=== PATIENT | female | born 1985 | race Caucasian/White ===

== ENCOUNTER 2020-03-22 10:08 | Outpatient (REF) | payer BC, SELFPAY ==
[2020-03-28 05:48] LABS: HPV 16 RNA NOT DETECTED (NOT DETECTED); HPV mRNA E6/E7 rflx Detected (Not Detected)
== END 2020-03-22 10:09 | disposition home or self-care (01) ==
LOC: HO.LAB 10:08
PROVIDERS: PCP Internal Medicine; Visit Provider Advanced Practice Midwife
DX: Z01.419 Encounter for gynecological examination (general) (routine) without abnormal findings (principal); R87.612 Low grade squamous intraepithelial lesion on cytologic smear of cervix (LGSIL); E11.9 Type 2 diabetes mellitus without complications; E28.2 Polycystic ovarian syndrome; E78.5 Hyperlipidemia, unspecified; Z90.710 Acquired absence of both cervix and uterus
CPT/HCPCS: 87624; 87625; 88141; 88142

== ENCOUNTER 2020-08-30 09:06 | Outpatient (REF) | payer BC, SELFPAY ==
[2020-08-30 10:39] LABS: Estimated Average Glucose 235 mg/dL; Hemoglobin A1c % 9.8 %
[2020-08-30 10:43] LABS: Alanine Aminotransferase 24 U/L (0-31); Albumin Level 4.2 g/dL (3.5-5.0); Alkaline Phosphatase 70 U/L (39-117); Anion Gap 14 (12-20); Aspartate Amino Transferase 17 U/L (5-31); Bilirubin Total 0.8 mg/dL (0.0-1.0); Blood Urea Nitrogen 19 mg/dL (9-16); Calcium 9.3 mg/dL (8.4-10.2); Carbon Dioxide 25 mmol/L (22-29); Chloride 99 mmol/L (96-108); Cholesterol 287 mg/dL; Estimated Glomerular Filt Rate > 60; Glucose Fasting 235 mg/dL (60-99); HDL Cholesterol 51 mg/dL; LDL Cholesterol Calculated 208 mg/dl; Potassium 4.7 mmol/L (3.3-5.1); Sodium 133 mmol/L (135-145); Total Protein 7.2 g/dL (6.5-8.0); Triglycerides 143 mg/dL
[2020-08-30 10:59] LABS: Creatinine Urine 177.77 mg/dL; Microalbum/Creatinine Ratio Ur 7.3 ug/mg cr
== END 2020-08-30 09:07 | disposition home or self-care (01) ==
LOC: HO.LAB 09:06
PROVIDERS: PCP Internal Medicine; Visit Provider Internal Medicine
DX: E11.9 Type 2 diabetes mellitus without complications (principal); E78.5 Hyperlipidemia, unspecified
CPT/HCPCS: 36415; 80053; 80061; 82043; 83036

== ENCOUNTER 2020-09-18 14:25 | Outpatient (REF) | payer BC, SELFPAY ==
[2020-09-19 06:42] LABS: CT PCR NOT DETECTED (Not Detect.); NG PCR NOT DETECTED (Not Detect.)
[2020-09-19 08:39] LABS: BV Int Neg Control Negative (Negative); BV Int Pos Control Positive (Positive)
== END 2020-09-18 14:26 | disposition home or self-care (01) ==
LOC: HO.LAB 14:25
PROVIDERS: PCP Internal Medicine; Visit Provider Obstetrics & Gynecology
DX: N76.0 Acute vaginitis (principal); Z20.2 Contact with and (suspected) exposure to infections with a predominantly sexual mode of transmission
CPT/HCPCS: 81003; 81025; 87480; 87491; 87510; 87591; 87660

== ENCOUNTER 2021-01-02 07:07 | Outpatient (REF) | payer BC, SELFPAY ==
[2021-01-02 08:59] LABS: Alanine Aminotransferase 20 U/L (0-31); Albumin Level 4.1 g/dL (3.5-5.0); Alkaline Phosphatase 51 U/L (39-117); Anion Gap 12 (12-20); Aspartate Amino Transferase 15 U/L (5-31); Bilirubin Total 0.6 mg/dL (0.0-1.0); Blood Urea Nitrogen 14 mg/dL (9-16); Calcium 9.1 mg/dL (8.4-10.2); Carbon Dioxide 23 mmol/L (22-29); Chloride 106 mmol/L (96-108); Cholesterol 208 mg/dL; Estimated Glomerular Filt Rate > 60; Glucose Fasting 145 mg/dL (60-99); HDL Cholesterol 45 mg/dL; LDL Cholesterol Calculated 147 mg/dl; Potassium 4.7 mmol/L (3.3-5.1); Sodium 136 mmol/L (135-145); Total Protein 6.8 g/dL (6.5-8.0); Triglycerides 81 mg/dL
== END 2021-01-02 07:08 | disposition home or self-care (01) ==
LOC: HO.LAB 07:07
PROVIDERS: PCP Internal Medicine; Visit Provider Internal Medicine
DX: E11.9 Type 2 diabetes mellitus without complications (principal); E78.5 Hyperlipidemia, unspecified
CPT/HCPCS: 36415; 80053; 80061

== ENCOUNTER 2021-01-09 08:46 | Emergency (ER) | payer BC, SELFPAY ==
[2021-01-09 09:50] VITALS: BP 148/72; PULSE 82; RESP 18; TEMP 36.8; O2SAT 100; BMI 32.0
[2021-01-09 10:25] LABS: COVID-19 Test Negative (Negative); IDNOW Serial# 9DD0AD1C
[2021-01-09 10:32] LABS: Strep A Nucleic Acid Negative (Negative)
--- NOTE | 2021-01-09 10:43 | ED.URI ---
HPI - URI/Sore Throat General Chief Complaint: Upper Respiratory Symptoms Stated Complaint: COUGH SORE THROAT HEADACHE Time Seen by Provider: 01/09/21 08:47 Source: patient Mode of arrival: ambulatory Limitations: no limitations History of Present Illness MD elicited complaint: sore throat and rhinorrhea Onset (ago): day(s) (1.5) Consistency: improved Severity: mild Description of mucous: clear Able to tolerate fluids by mouth: Yes Exacerbating factors: swallowing Associated symptoms: denies other symptoms Treatments prior to arrival: none Related Data Home Medications Medication Instructions Recorded Confirmed metformin 750 mg tablet,extended 750 mg PO BID 03/22/20 01/07/21 release 24 hr blood sugar diagnostic #10 ea 08/29/20 01/07/21 Previous Rx's Medication Instructions Recorded atorvastatin 20 mg tablet 20 mg PO BEDTIME 90 Days #90 tab 01/07/21 Allergies Allergy/AdvReac Type Severity Reaction Status Date / Time sulfamethoxazole [Bactrim] Allergy Intermediate hives Verified 01/09/21 09:49 trimethoprim [Bactrim] Allergy Intermediate hives Verified 01/09/21 09:49 metformin AdvReac Intermediate diarrhea Verified 01/09/21 09:49 Review of Systems Review of Systems: Constitutional : no Fever, no Chills, no fatigue, no Malaise ENT/Mouth : positive sore throat, positive runny nose Eyes: No Discharge Cardiovascular : No Chest Pain, No SOB Respiratory : No Cough, No Sputum Gastrointestinal : No Nausea, No Vomiting, No Diarrhea Genitourinary : No Dysuria, No Urinary Frequency Musculoskeletal : no Myalgia Skin : No rash Neuro : No Headache PMFSH Past Medical History Attestation statement: The following information was validated with the patient. Medical History Class 1 obesity with body mass index (BMI) of 32.0 to 32.9 in adult Diabetes mellitus Diabetes mellitus type 2 in nonobese History of PCOS Hyperlipemia Pure hypercholesterolemia Surgical History History of hysterectomy, supracervical Hx of section Family History Family History Father Diabetes mellitus Substance use disorder Mother Hypertension Social History Social History Housing: House Alcohol intake: never Patient Tobacco Use Status: Never used Tobacco e-Cigarette/Vaping Use: Never Used Second Hand Smoke Exposure: No Advance Directives: Yes Advance Directives Information Provided: No Advance Directives on File: No Patient : No service: No Current occupational status: employed Current occupational exposures/hazards: No Sexual orientation: Straight/Heterosexual Physical Exam Vital Signs: Vital Signs: Last Vital Signs Temp 98.3 F 01/09/21 09:50 Pulse 82 01/09/21 09:50 Resp 18 01/09/21 09:50 BP 148/72 H 01/09/21 09:50 Pulse Ox 100 01/09/21 09:50 Body Mass Index 32.0 Appearance: Alert. Oriented X3. No acute distress. Eyes: Pupils equal, round and reactive to light. ENT: Pharynx no erythema or exudates Neck: Normal inspection. Neck supple. CVS: Normal heart rate and rhythm. Pulses normal. Respiratory: No respiratory distress. Breath sounds normal. Abdomen: Soft and nontender. Skin: Skin warm and dry. Normal skin color. Normal skin turgor. Extremities: No lower extremity edema. Neuro: Oriented X 3. No motor deficit. No sensory deficit. MDM - URI/Sore Throat MDM Narrative Medical decision making narrative: 35 yo female with DM here with runny nose for 1.5 days no fevers, some scratchy throat otherwise not toxic, already feels better, no sinus ttp - COVID and strep swab, precautions to return Lab Data Labs: Lab Results 01/09/21 01/09/21 Range/Units 09:52 09:52 COVID-19 ([facility]) Negative (Negative) COVID-19 Clin Com See Note S. pyogenes GrpA HAMIDA Negative (Negative) Discharge Plan Discharge Clinical Impression: Upper respiratory infection Qualifiers: URI type: unspecified viral URI Qualified Code(s): J06.9 - Acute upper respiratory infection, unspecified Patient Disposition: Home, Self-Care Instructions: Upper Respiratory Infection (ED) Additional Instructions: return to ED for any worsening symptoms or concerns negative for COVID and negative for strep if symptoms persist repeat test in 2 days Prescriptions: No Action atorvastatin 20 mg tablet 20 mg PO BEDTIME 90 Days Qty: 90 RF: 1 (DME) OneTouch Verio test strips Strip See Rx Instructions ea Not Applicable TID Qty: 10 RF: 0 metformin 750 mg tablet extended release 24 hr 750 mg PO BID RF: 0 Stand Alone Forms: Work/School Release
== END 2021-01-09 11:03 | disposition home or self-care (01) ==
PROVIDERS: Emergency Provider Emergency Medicine; PCP Internal Medicine
DX: J06.9 Acute upper respiratory infection, unspecified (principal); R05 Cough; R51.9 Headache, unspecified; Z20.822 Contact with and (suspected) exposure to COVID-19; Z79.899 Other long term (current) drug therapy
CPT/HCPCS: 36415; 87635; 87651; 99283

== ENCOUNTER 2021-01-12 12:28 | Emergency (ER) | payer BC, SELFPAY ==
[2021-01-12 12:37] VITALS: BP 107/84; PULSE 80; RESP 18; TEMP 36.8; O2SAT 98; BMI 32.0
[2021-01-12 13:22] LABS: COVID-19 Test Negative (Negative)
--- NOTE | 2021-01-12 14:39 | ED.URI ---
HPI - URI/Sore Throat General Chief Complaint: Upper Respiratory Symptoms Stated Complaint: FLU LIKE Time Seen by Provider: 01/12/21 14:39 Source: patient Mode of arrival: ambulatory Limitations: no limitations History of Present Illness HPI Narrative: 35-year-old female who had upper respiratory symptoms starting on of sore throat and rhinorrhea. Sore throat resolved, she was seen in the emergency room 4 days ago and had a negative strep and a negative COVID. Since then, patient states her ears are ?crackling?, she has a runny nose, a mild frontal headache. No cough, no fever, no body aches. Related Data Home Medications Medication Instructions Recorded Confirmed metformin 750 mg tablet,extended 750 mg PO BID 03/22/20 01/07/21 release 24 hr blood sugar diagnostic #10 ea 08/29/20 01/07/21 Previous Rx's Medication Instructions Recorded atorvastatin 20 mg tablet 20 mg PO BEDTIME 90 Days #90 tab 01/07/21 Allergies Allergy/AdvReac Type Severity Reaction Status Date / Time sulfamethoxazole [Bactrim] Allergy Intermediate hives Verified 01/12/21 12:36 trimethoprim [Bactrim] Allergy Intermediate hives Verified 01/12/21 12:36 metformin AdvReac Intermediate diarrhea Verified 01/12/21 12:36 Review of Systems Constitutional: Constitutional: Denies body ache(s), Denies chills, Reports fatigue, Denies fever(s) and Reports headache(s) Eyes: Eyes: Denies blurry vision, Denies change in vision and Denies diplopia ENT: Denies dizziness, Denies otalgia, Reports headache(s), Reports nasal congestion, Reports nasal discharge, Reports post nasal drip, Reports sinus pain and Denies sore throat Cardiovascular: Cardiovascular: Denies chest pain and Denies dyspnea Respiratory: Respiratory: Denies chest congestion, Denies cough and Denies dyspnea Gastrointestinal: Gastrointestinal: Denies abdominal pain, Denies constipation, Denies diarrhea, Denies nausea and Denies vomiting Genitourinary: Genitourinary: Reports no additional female genitourinary complaints Musculoskeletal: Musculoskeletal: Denies myalgias Integumentary/Breasts: Skin/Breast: Denies erythema Neurologic: Denies dizziness and Reports headache(s) Endocrine: Endocrine: Reports fatigue PMFSH Past Medical History Medical History Class 1 obesity with body mass index (BMI) of 32.0 to 32.9 in adult Diabetes mellitus Diabetes mellitus type 2 in nonobese History of PCOS Hyperlipemia Pure hypercholesterolemia Surgical History History of hysterectomy, supracervical Hx of section Family History Family History Father Diabetes mellitus Substance use disorder Mother Hypertension Social History Social History Housing: House Alcohol intake: never Patient Tobacco Use Status: Never used Tobacco e-Cigarette/Vaping Use: Never Used Second Hand Smoke Exposure: No Advance Directives: No Advance Directives Information Provided: Yes Patient : No service: No Current occupational status: employed Current occupational exposures/hazards: No Sexual orientation: Straight/Heterosexual Physical Exam Vital Signs: Vital Signs: Last Vital Signs Temp 98.2 F 01/12/21 12:37 Pulse 80 01/12/21 12:37 Resp 18 01/12/21 12:37 BP 107/84 01/12/21 12:37 Pulse Ox 98 01/12/21 12:37 Body Mass Index 32.0 Const: General: cooperative, no acute distress, well developed, alert and awake Nutritional Appearance: well nourished Orientation/consciousness: patient oriented x3 Limitations: no limitations HENMT: Head: Yes normal to inspection, Yes normocephalic and Yes atraumatic Ears: hearing grossly normal bilaterally, external ears normal, TM's normal bilaterally and EAC's normal General nose exam: Normal external nose present Face and sinus: Yes normal facial exam and Yes sinuses nontender Mouth: Normal oral and palatal mucosa present Throat: Yes postnasal drainage Eyes: Conjunctivae: conjunctivae normal Pupils: Equal, round and reactive pupils present EOM: EOMs intact bilaterally Neck: Neck: Yes full ROM, Yes no lymphadenopathy and Yes supple Resp: Effort & Inspection: normal respiratory effort and able to speak in complete sentences Auscultation: clear to auscultation bilaterally, no crackles, no rales, no rhonchi and no wheezes Cardio: Rate: regular rate Rhythm: regular rhythm Heart sounds: S1 normal heart sound present and S2 normal heart sound present GI: Inspection: Yes normal to inspection Palpation (GI): Soft to palpation, nontender, no guarding and not rigid Percussion: Yes normal to percussion Auscultation: normal bowel sounds Skin: General skin exam: no rashes or lesions noted Neuro: General: patient oriented x3, tone normal and moves all extremities Cranial nerves: Yes Equal, round and reactive pupils present Extrem: General: Yes normal to inspection and Yes full ROM Psych: Appearance: grossly normal Affect: normal affect Attitude: cooperative Thought process: Normal thought process present Course Course Course Narrative: COVID negative. Counseled [facility]Med sinus rinse, Sudafed. Gave return precautions. MDM - URI/Sore Throat Lab Data Labs: Lab Results 01/12/21 Range/Units 12:43 COVID-19 ([facility]) Negative (Negative) COVID-19 Clin Com See Note Discharge Plan Discharge Clinical Impression: Acute viral syndrome Patient Disposition: Home, Self-Care Additional Instructions: Please use [facility] sinus rinse. Please use Sudafed. Please take Tylenol and rest. Your COVID test was negative today. Please return emergency room for new or concerning symptoms. Prescriptions: No Action atorvastatin 20 mg tablet 20 mg PO BEDTIME 90 Days Qty: 90 RF: 1 (DME) OneTouch Verio test strips Strip See Rx Instructions ea Not Applicable TID Qty: 10 RF: 0 metformin 750 mg tablet extended release 24 hr 750 mg PO BID RF: 0 Interventions: ED Discharge Assessment Last Done: 01/12/21 15:20 Discharge Date/Time: 01/12/21 15:21
== END 2021-01-12 15:21 | disposition home or self-care (01) ==
PROVIDERS: Emergency Provider Emergency Medicine Emergency Medical Services; PCP Internal Medicine
DX: B34.9 Viral infection, unspecified (principal); J34.89 Other specified disorders of nose and nasal sinuses; J02.9 Acute pharyngitis, unspecified; E11.9 Type 2 diabetes mellitus without complications; Z20.822 Contact with and (suspected) exposure to COVID-19; Z79.899 Other long term (current) drug therapy; Z79.84 Long term (current) use of oral hypoglycemic drugs
CPT/HCPCS: 36415; 87635; 99283

== ENCOUNTER 2021-03-10 10:20 | Emergency (ER) | payer BC, SELFPAY ==
--- NOTE | ~2021-03-10 | XR_ITS ---
EXAMINATION: XR CHEST CLINICAL INFORMATION: Cough COMPARISON: None TECHNIQUE: 2 views of the chest were obtained. FINDINGS: No significant abnormality is noted involving the heart, lungs, mediastinum, bony thorax or soft tissues. XR/XR chest 2V IMPRESSION: Unremarkable examination.
--- NOTE | ~2021-03-10 | CT_ITS ---
EXAMINATION: CT HEAD WITHOUT CONTRAST CLINICAL INFORMATION: Headache. COMPARISON: None TECHNIQUE: Contiguous axial imaging was performed from the skull base to vertex without intravenous administration of contrast. This CT examination was performed using dose optimization techniques as appropriate, variously including the following: *Automated exposure control *Adjustment of mA and/or kV according to patient size (this includes techniques or standardized protocols for targeted exams where dose is matched to indication/reason for exam; i.e. extremities or head) *Use of iterative reconstruction technique DLP: 688 mGy-cm FINDINGS: There is no evidence of acute intracranial hemorrhage or territorial infarction. No abnormal mass effect or midline shift is seen. Tolliver to white matter differentiation is well preserved. No extra-axial fluid collections are identified. There is dense anterior interhemispheric falx calcification The ventricles are normal in size. There is no abnormal attenuation within the brain parenchyma. The osseous structures and soft tissues are normal. The mastoid air cells and visualized portions of the paranasal sinuses are well aerated. CT/CT head/brain wo con IMPRESSION: No acute intracranial process seen.
[2021-03-10 11:21] VITALS: BP 156/93; PULSE 90; RESP 18; TEMP 36.9; O2SAT 99; BMI 32.9
--- NOTE | 2021-03-10 11:23 | ED.GENADULT ---
HPI - General Adult General Chief complaint: General Medical Stated complaint: COVID+, headache Time Seen by Provider: 03/10/21 11:17 Source: patient Mode of arrival: ambulatory Limitations: no limitations History of Present Illness HPI narrative: This is a very pleasant 35 year female was tenuous a week ago with about 4 days ago presented to the ED with a chief complaint of a headache. Headache is localized in the left side of the head is been present for 10 days pre covid dx, there is no nausea no vomiting no neck pain Onset (ago): day(s) (10) Location: head Radiation: non-radiation Severity: mild Quality: burning Pain Consistency: constant Exacerbating factors: none Related Data Home Medications Medication Instructions Recorded Confirmed metformin 750 mg tablet,extended 750 mg PO BID 03/22/20 03/05/21 release 24 hr blood sugar diagnostic #10 ea 08/29/20 03/05/21 Previous Rx's Medication Instructions Recorded atorvastatin 20 mg tablet 20 mg PO BEDTIME 90 Days #90 tab 01/07/21 Allergies Allergy/AdvReac Type Severity Reaction Status Date / Time sulfamethoxazole [Bactrim] Allergy Intermediate hives Verified 03/05/21 15:53 trimethoprim [Bactrim] Allergy Intermediate hives Verified 03/05/21 15:53 metformin AdvReac Intermediate diarrhea Verified 03/05/21 15:53 Review of Systems Review of Systems: Yes all other systems are reviewed and are negative Constitutional: Constitutional: Reports fatigue ENT: Denies dysphagia, Denies vertigo and Denies dizziness Cardiovascular: Cardiovascular: Reports no additional cardiovascular complaints Gastrointestinal: Gastrointestinal: Denies dysphagia and Denies diarrhea Neurologic: Denies vertigo and Denies dizziness Endocrine: Endocrine: Reports fatigue PMFSH Past Medical History Medical History Class 1 obesity with body mass index (BMI) of 32.0 to 32.9 in adult Diabetes mellitus Diabetes mellitus type 2 in nonobese History of PCOS Hyperlipemia Pure hypercholesterolemia Surgical History History of hysterectomy, supracervical Hx of section Family History Family History Father Diabetes mellitus Substance use disorder Mother Hypertension Social History Social History Housing: House Alcohol intake: never Patient Tobacco Use Status: Never used Tobacco e-Cigarette/Vaping Use: Never Used Second Hand Smoke Exposure: No Use of substances other than those prescribed or required for medical reasons: No Advance Directives: No Advance Directives Information Provided: Yes service: No Current occupational status: employed Current occupational exposures/hazards: No Sexual orientation: Straight/Heterosexual Physical Exam Vital Signs: Vital Signs: Last Vital Signs Temp 98.4 F 03/10/21 11:21 Pulse 90 03/10/21 11:21 Resp 18 03/10/21 11:21 BP 156/93 H 03/10/21 11:21 Pulse Ox 99 03/10/21 11:21 Body Mass Index 32.9 Const: Other: On examination she looks very well she has no toxic-appearing a General: cooperative Orientation/consciousness: patient oriented x3 HENMT: Other: Examination of the i.e. years Heiss nose throat is within normal limit, the pupils equal and reactive full extraocular movement Ears: hearing grossly normal bilaterally General nose exam: Normal external nose present Face and sinus: Yes normal facial exam Mouth: Normal oral and palatal mucosa present Neck: Neck: Yes normal visual inspection, Yes full ROM and Yes no lymphadenopathy Chest: Chest palpation & inspection: normal inspection of the chest Resp: Effort & Inspection: normal respiratory effort Cardio: Jugular venous distension: no JVD Rate: regular rate Rhythm: regular rhythm GI: Inspection: Yes normal to inspection Palpation (GI): Soft to palpation, not firm, nontender and no guarding Skin: General skin exam: no rashes or lesions noted Lesions: no lesions Rashes: no rashes Trauma: no lacerations or abrasions Neuro: General: patient oriented x3 Cranial nerves: Yes CN's II-XII intact bilaterally Cognition (Neuro): normal cognition Gait exam (Neuro): Normal gait present Motor exam (neuro): 5/5 motor strength present throughout Course Reevaluation(s) Reevaluation #1: she is feeling much better,asyntomatic at this time,head ct negative,labs wnl,LESTER grdul unlikely subaracnoid,no fever normal WBC unlikely meningitis Medical Decision Making MDM Narrative Medical decision making narrative: This is a 35 years old occult positive presented with a headache she looks well in no toxic a known exam is normal we will going to get some baseline blood work and CT, unlikely meningitis that she has no neck pain, unlikely subarachnoid bleed because of the onset was gradual was no sudden, not the worse headache ever Lab Data Result diagrams: 03/10/21 11:29 03/10/21 11:29 Labs: Lab Results 03/10/21 03/10/21 Range/Units 11:29 11:29 WBC 4.6 L (4.8-10.8) X10*3/uL RBC 4.39 (4.20-5.50) X10*6/uL Hgb 14.0 (12.0-16.0) g/dl Hct 40.4 (37.0-47.0) % MCV 92.0 (80.0-98.0) fL MCH 31.9 (27.0-33.0) pg MCHC 34.7 (31.0-35.0) g/dl RDW 11.9 (11.0-16.0) % Plt Count 248 (160-400) X10*3/uL MPV 10.2 (9.4-12.3) fL Immature Gran % (Auto) 0.2 (0.0-0.4) % Neut % (Auto) 47.6 (45-73) % Lymph % (Auto) 40.8 H (20-40) % Mchenry % (Auto) 9.0 (2-11) % Eos % (Auto) 2.2 (0-4) % Baso % (Auto) 0.2 (0-2) % Lymph # (Auto) 1.9 (1.2-4.9) X10*3/uL Mchenry # (Auto) 0.4 (0.1-1.2) X10*3/uL Eos # (Auto) 0.1 (0.0-0.4) X10*3/uL Baso # (Auto) 0.0 (0.0-0.2) X10*3/uL Abs Immat Gran (auto) 0.01 (0.00-0.03) X10*3/uL Absolute Neuts (auto) 2.2 (2.0-8.3) x10*3/uL Absolute Nucleated RBC 0.000 (0.0-0.012) X10*3/uL Nucleated RBC % (auto) 0.0 (0.0-0.2) /100WBC Sodium 138 (135-145) mmol/L Potassium 4.5 (3.3-5.1) mmol/L Chloride 107 (96-108) mmol/L Carbon Dioxide 23 (22-29) mmol/L Anion Gap 13 (12-20) BUN 9 (9-16) mg/dL Creatinine 0.74 (0.5-1.4) mg/dL Estim Creat Clear Calc 106.0 Estimated GFR > 60 Random Glucose 170 H (60-115) mg/dL Calcium 9.3 (8.4-10.2) mg/dL Total Bilirubin 0.6 (0.0-1.0) mg/dL AST 19 (5-31) U/L ALT 26 (0-31) U/L Alkaline Phosphatase 64 D (39-117) U/L Total Protein 7.6 (6.5-8.0) g/dL Albumin 4.5 (3.5-5.0) g/dL Beta HCG, Quant < 2 mIU/mL Imaging Data CT scan - head: Radiologist's impression: e to vertex without intravenous administration of contrast. This CT examination was performed using dose optimization techniques as appropriate, variously including the following: *Automated exposure control *Adjustment of mA and/or kV according to patient size (this includes techniques or standardized protocols for targeted exams where dose is matched to indication/reason for exam; i.e. extremities or head) *Use of iterative reconstruction technique DLP: 688 mGy-cm FINDINGS: There is no evidence of acute intracranial hemorrhage or territorial infarction. No abnormal mass effect or midline shift is seen. Tolliver to white matter differentiation is well preserved. No extra-axial fluid collections are identified. There is dense anterior interhemispheric falx calcification The ventricles are normal in size. There is no abnormal attenuation within the brain parenchyma. The osseous structures and soft tissues are normal. The mastoid air cells and visualized portions of the paranasal sinuses are well aerated. ? CT/CT head/brain wo con IMPRESSION: No acute intracranial process seen. Discharge Plan Discharge Clinical Impression: Head ache Patient Disposition: Home, Self-Care Instructions: Acute Headache (ED) Prescriptions: No Action atorvastatin 20 mg tablet 20 mg PO BEDTIME 90 Days Qty: 90 RF: 1 (DME) OneTouch Verio test strips Strip See Rx Instructions ea Not Applicable TID Qty: 10 RF: 0 metformin 750 mg tablet extended release 24 hr 750 mg PO BID RF: 0 Referrals: Amy Jimenes MD [Primary Care Provider] - 2 days
[2021-03-10] MEDS: Ibuprofen 800 MG TABLET PO (11:27)
[2021-03-10 11:34] LABS: MANUAL DIFF FLAG NO
[2021-03-10 11:42] LABS: Basophils Percent Auto 0.2 % (0-2); Eosinophils Absolute Auto 0.1 X10*3/uL (0.0-0.4); Eosinophils Percent Auto 2.2 % (0-4); Hematocrit 40.4 % (37.0-47.0); Imm Gran Abs Auto 0.01 X10*3/uL (0.00-0.03); Imm Gran Pct Auto 0.2 % (0.0-0.4); Lymphocytes Absolute Auto 1.9 X10*3/uL (1.2-4.9); Lymphocytes Percent Auto 40.8 % (20-40); Mean Corpuscular HGB Conc 34.7 g/dl (31.0-35.0); Mean Corpuscular Hemoglobin 31.9 pg (27.0-33.0); Mean Platelet Volume 10.2 fL (9.4-12.3); Monocytes Absolute Auto 0.4 X10*3/uL (0.1-1.2); Neutrophils Absolute Auto 2.2 x10*3/uL (2.0-8.3); Neutrophils Percent Auto 47.6 % (45-73); Platelet Count 248 X10*3/uL (160-400); Red Blood Count 4.39 X10*6/uL (4.20-5.50); Red Cell Distribution Width 11.9 % (11.0-16.0); White Blood Count 4.6 X10*3/uL (4.8-10.8)
[2021-03-10 11:54] LABS: Alanine Aminotransferase 26 U/L (0-31); Albumin Level 4.5 g/dL (3.5-5.0); Alkaline Phosphatase 64 U/L (39-117); Anion Gap 13 (12-20); Aspartate Amino Transferase 19 U/L (5-31); Bilirubin Total 0.6 mg/dL (0.0-1.0); Blood Urea Nitrogen 9 mg/dL (9-16); Calcium 9.3 mg/dL (8.4-10.2); Carbon Dioxide 23 mmol/L (22-29); Chloride 107 mmol/L (96-108); Estimated Glomerular Filt Rate > 60; Glucose Random 170 mg/dL (60-115); Potassium 4.5 mmol/L (3.3-5.1); Sodium 138 mmol/L (135-145); Total Protein 7.6 g/dL (6.5-8.0)
[2021-03-10] MEDS: Butalb/Acetamin/Caff 50/325/40 TABLET 2 TAB PO (12:14)
[2021-03-10 12:16] LABS: HCG Quantitative < 2 mIU/mL
== END 2021-03-10 13:05 | disposition home or self-care (01) ==
PROVIDERS: Emergency Provider Emergency Medicine; PCP Internal Medicine
DX: R51.9 Headache, unspecified (principal); E11.9 Type 2 diabetes mellitus without complications; E78.5 Hyperlipidemia, unspecified; Z79.02 Long term (current) use of antithrombotics/antiplatelets; Z86.16 Personal history of COVID-19
CPT/HCPCS: 36415; 70450; 71046; 80053; 84702; 85025; 99284

== ENCOUNTER → 2021-04-28 15:02 | Outpatient (BNVA) | payer BC, SELFPAY | PROVIDERS: PCP Internal Medicine; Visit Provider Obstetrics & Gynecology ==

== ENCOUNTER 2021-06-26 07:57 | Outpatient (REF) | payer BC, SELFPAY ==
[2021-07-02 03:16] LABS: HPV 16 RNA NOT DETECTED (NOT DETECTED); HPV mRNA E6/E7 rflx Detected (Not Detected)
== END 2021-06-26 07:58 | disposition home or self-care (01) ==
LOC: HO.LAB 07:57
PROVIDERS: PCP Internal Medicine; Visit Provider Obstetrics & Gynecology
DX: Z01.419 Encounter for gynecological examination (general) (routine) without abnormal findings (principal)
CPT/HCPCS: 87624; 87625; 88142

== ENCOUNTER 2021-08-06 09:32 | Outpatient (REF) | payer BC, SELFPAY | END 2021-08-06 09:33 | disposition home or self-care (01) | LOC: HO.LAB 09:32 | PROVIDERS: PCP Internal Medicine; Visit Provider Obstetrics & Gynecology | DX: A63.0 Anogenital (venereal) warts (principal); B97.7 Papillomavirus as the cause of diseases classified elsewhere | CPT/HCPCS: 57454; 88305 ==

== ENCOUNTER 2021-09-06 07:24 | Emergency (ER) | payer BC, SELFPAY ==
[2021-09-06 08:00] VITALS: BP 162/90; PULSE 83; RESP 18; TEMP 36.9; BMI 36.1
--- NOTE | 2021-09-06 08:09 | ED_ITS ---
HPI - General Adult General Chief complaint: Upper Respiratory Symptoms Stated complaint: ear pain/headaches Time Seen by Provider: 09/06/21 08:09 Source: patient Mode of arrival: ambulatory Limitations: no limitations History of Present Illness HPI narrative: Patient is a 36 year old female presenting to the emergency department today with left ear pain and sinus pressure. Patient states that starting last night she began to have sinus pressure and left ear pain. Patient denies any dizziness, lightheadedness, abdominal pain, nausea, vomiting, fever, chills, blurry vision, double vision, loss of vision, chest pain, difficulty breathing, shortness of breath, back pain, night sweats, pain with urination, increased urinary frequency, increased urinary urgency, blood in her urine or stool, syncope or a near syncopal episode, recent trauma or falls, bowel incontinence, bladder incontinence, bowel retention, bladder retention, or any other complaints at this time. Onset (ago): hour(s) Severity: mild Severity scale (1-10): 2 Quality: dull Pain Consistency: constant Relieving factors: none Exacerbating factors: none Associated symptoms: denies other symptoms Treatments prior to arrival: none Related Data Home Medications Medication Instructions Recorded Confirmed metformin 750 mg tablet,extended 750 mg PO BID 03/22/20 04/28/21 release 24 hr blood sugar diagnostic #10 ea 08/29/20 04/28/21 Previous Rx's Medication Instructions Recorded atorvastatin 20 mg tablet 20 mg PO BEDTIME 90 Days #90 tab 01/07/21 amoxicillin 875 mg-potassium 1 tab PO BID 7 Days #14 tab 09/06/21 clavulanate 125 mg tablet Allergies Allergy/AdvReac Type Severity Reaction Status Date / Time sulfamethoxazole [Bactrim] Allergy Intermediate hives Verified 04/28/21 15:13 trimethoprim [Bactrim] Allergy Intermediate hives Verified 04/28/21 15:13 metformin AdvReac Intermediate diarrhea Verified 04/28/21 15:13 Review of Systems Constitutional: Constitutional: Reports no additional constitutional complaints, Denies chills, Denies fever(s) and Denies night sweats Eyes: Eyes: Reports no additional eye complaints, Denies blurry vision, Denies change in vision, Denies diplopia, Denies eye discharge, Denies loss of vision and Denies eye pain ENT: Denies dizziness and Reports sinus pain Comments: left ear pain Cardiovascular: Cardiovascular: Reports no additional cardiovascular complaints, Denies chest pain, Denies lightheadedness, Denies Loss of Consciousness and Denies dyspnea Respiratory: Respiratory: Reports no additional respiratory complaints and Denies dyspnea Gastrointestinal: Gastrointestinal: Reports no additional gastrointestinal complaints, Denies abdominal pain, Denies melena, Denies hematochezia, Denies change in bowel habits and Denies change in stool character Genitourinary: Genitourinary: Denies hematuria, Denies urinary frequency, Denies dysuria, Denies urinary incontinence, Denies urinary hesitancy and Denies urinary urgency Musculoskeletal: Musculoskeletal: Reports no additional musculoskeletal complaints, Denies numbness and Denies tingling Neurologic: Denies dizziness, Denies loss of vision, Denies numbness and Denies tingling Psychiatric: Psychiatric: Reports no additional psychiatric complaints Endocrine: Endocrine: Reports no additional endocrine complaints Hematologic/Lymphatic: Hematologic/Lymphatic: Reports no additional hematologic/lymphatic complaints Allergic/Immunologic: Allergic/Immunologic: Reports no additional allergic/immunologic complaints PMFSH Past Medical History Attestation statement: The following information was validated with the patient. Source: old records reviewed Medical History Class 1 obesity with body mass index (BMI) of 32.0 to 32.9 in adult Diabetes mellitus Diabetes mellitus type 2 in nonobese Dysplasia of cervix, low grade (JAMES 1) History of PCOS Hyperlipemia Leukopenia Pure hypercholesterolemia Surgical History History of hysterectomy, supracervical Hx of section Family History Family History Father Diabetes mellitus Substance use disorder Mother Hypertension Social History Social History Housing: House Alcohol intake: never Patient Tobacco Use Status: Never used Tobacco e-Cigarette/Vaping Use: Never Used Second Hand Smoke Exposure: No Use of substances other than those prescribed or required for medical reasons: No Advance Directives: No Advance Directives Information Provided: No service: No Current occupational status: employed Current occupational exposures/hazards: No Sexual orientation: Straight/Heterosexual Physical Exam ED Vital Signs: Vital Signs - 24 hr 09/06/21 08:00 09/06/21 09:01 Temperature 98.4 F Pulse Rate 83 78 Respiratory Rate 18 16 Blood Pressure 162/90 H Pulse Oximetry 99 BMI result Body Mass Index 36.1 Const General: cooperative, no acute distress, alert and awake Nutritional Appearance: well nourished Orientation/consciousness: patient oriented x3 Limitations: no limitations HENMT Head: Yes normal to inspection and Yes atraumatic Ears: hearing grossly normal bilaterally, external ears normal and TM's normal bilaterally General nose exam: Normal external nose present, no nasal discharge noted and no epistaxis Face and sinus: Yes normal facial exam, No abrasion and No laceration Mouth: Normal oral and palatal mucosa present, no drooling and no muffled voice Eyes General: appearance normal, both eyes and all related structures Periorbital: periorbital findings normal Eyelids: Yes eyelids normal Conjunctivae: conjunctivae normal Pupils: Equal, round and reactive pupils present EOM: EOMs intact bilaterally Neck Neck: Yes normal visual inspection, Yes full ROM and Yes no lymphadenopathy Chest Chest palpation & inspection: normal inspection of the chest Resp Effort & Inspection: normal respiratory effort and able to speak in complete sentences Auscultation: clear to auscultation bilaterally Cardio Rate: regular rate Rhythm: regular rhythm GI Inspection: Yes normal to inspection Neuro General: patient oriented x3 and moves all extremities Cranial nerves: Yes Equal, round and reactive pupils present Cognition (Neuro): normal cognition Motor exam (neuro): 5/5 motor strength present throughout Sensory Exam: Normal double simultaneous stimulation for sensation Coordination: [id number] test normal Extrem General: Yes normal to inspection, Yes full ROM and Yes capillary refill normal Psych Appearance: grossly normal Mental Status: mental status grossly normal Affect: normal affect Attitude: cooperative Thought process: Normal thought process present Thought content: Normal thought content present Insight: Good insight present (Psych) Medical Decision Making MDM Narrative Medical decision making narrative: Patient is a 36 year old female presenting to the emergency department today with sinus pressure and left ear pain. Patient's physical exam was unremarkable. Patient's rapid COVID-19 and Influenza tests were negative. I explained my physical exam findings as well as all test results to the patient. I answered all questions asked by the patient. I stressed the importance of the patient taking her medication as prescribed. I stressed the importance of the patient following up with her primary care provider. I stressed the importance of the patient returning to the emergency department immediately if her symptoms were to worsen or if she were to develop any dizziness, shortness of breath, difficulty breathing, chest pain, blurry vision, loss of vision, nausea, vomiting, abdominal pain, fever, chills, back pain, or any other complaints. Patient verbalized agreement and understanding with this treatment plan and discharge. Differential Diagnosis Differential Diagnosis: sinusitis Medical Records Medical records reviewed: Yes I reviewed the patient's medical records. Lab Data Lab results reviewed: Yes I reviewed the patient's lab results. Labs: Lab Results 09/06/21 09/06/21 Range/Units 08:46 08:46 COVID-19 (MARGE) Negative (Negative) COVID-19 Clin Com See Note Influenza Type A ([facility]) Negative (Negative) Influenza Type B ([facility]IDA) Negative (Negative) Influenza A & B Note See Note Discharge Plan Discharge Clinical Impression: Sinusitis Patient Disposition: Home, Self-Care Instructions: Sinusitis (ED) Additional Instructions: Follow up with your primary care provider. Return to the emergency department immediately if your symptoms worsen or if you develop any dizziness, shortness of breath, difficulty breathing, chest pain, blurry vision, loss of vision, nausea, vomiting, abdominal pain, fever, chills, back pain, or any other complaints. Prescriptions: New amoxicillin-pot clavulanate 875-125 mg tablet 1 tab PO BID 7 Days Qty: 14 0RF No Action atorvastatin 20 mg tablet 20 mg PO BEDTIME 90 Days Qty: 90 1RF (DME) OneTouch Verio test strips Strip See Rx Instructions ea Not Applicable TID Qty: 10 0RF Rx Instructions: As directed metformin 750 mg tablet extended release 24 hr 750 mg PO BID 0RF Referrals: Amy Jimenes MD [Primary Care Provider] - (Follow up with your PCP. ) Stand Alone Forms: Work/School Release Interventions: ED Discharge Assessment Last Done: 09/06/21 09:59 Discharge Date/Time: 09/06/21 09:59 Print Language: Macedonian
[2021-09-06] MEDS: Ketorolac Tromethamine 15 MG/ML VIAL IM (08:47)
[2021-09-06 09:01] VITALS: PULSE 78; RESP 16; O2SAT 99
[2021-09-06 09:34] LABS: COVID-19 Test Negative (Negative); IDNOW Serial# 08D9AD1C; Influenza A Negative (Negative); Influenza B2 Negative (Negative)
== END 2021-09-06 09:59 | disposition home or self-care (01) ==
PROVIDERS: Physician Assistant Medical; Emergency Provider Emergency Medicine Emergency Medical Services; PCP Internal Medicine
DX: J32.9 Chronic sinusitis, unspecified (principal); R51.9 Headache, unspecified; H92.02 Otalgia, left ear; Z20.822 Contact with and (suspected) exposure to COVID-19; Z79.899 Other long term (current) drug therapy
CPT/HCPCS: 87502; 87635; 96372; 99284; J1885

== ENCOUNTER 2022-03-28 10:14 | Outpatient (REF) | payer BC, SELFPAY ==
[2022-03-28 10:23] LABS: MANUAL DIFF FLAG NO
[2022-03-28 11:05] LABS: Basophils Percent Auto 0.4 % (0-2); Eosinophils Absolute Auto 0.1 X10*3/uL (0.0-0.4); Eosinophils Percent Auto 1.3 % (0-4); Hematocrit 41.6 % (37.0-47.0); Hemoglobin 14.1 g/dl (12.0-16.0); Imm Gran Abs Auto 0.02 X10*3/uL (0.00-0.03); Imm Gran Pct Auto 0.3 % (0.0-0.4); Lymphocytes Absolute Auto 2.4 X10*3/uL (1.2-4.9); Mean Corpuscular HGB Conc 33.9 g/dl (31.0-35.0); Mean Corpuscular Hemoglobin 30.8 pg (27.0-33.0); Mean Corpuscular Volume 90.8 fL (80.0-98.0); Mean Platelet Volume 10.5 fL (9.4-12.3); Monocytes Absolute Auto 0.4 X10*3/uL (0.1-1.2); Monocytes Percent Auto 5.8 % (2-11); Neutrophils Absolute Auto 4.5 x10*3/uL (2.0-8.3); Neutrophils Percent Auto 60.2 % (45-73); Platelet Count 349 X10*3/uL (160-400); Red Blood Count 4.58 X10*6/uL (4.20-5.50); White Blood Count 7.5 X10*3/uL (4.8-10.8)
[2022-03-28 11:43] LABS: Cholesterol 324 mg/dL; HDL Cholesterol 54 mg/dL; LDL Cholesterol Calculated 248 mg/dl; Triglycerides 114 mg/dL
[2022-03-28 12:11] LABS: Vitamin B12 413 pg/mL (200-900)
[2022-04-02 16:37] LABS: Vitamin D 25-OH, D2 <4 ng/mL; Vitamin D 25-OH, D3 22 ng/mL; Vitamin D 25-OH, Total 22 ng/mL (30-100)
== END 2022-03-28 10:15 | disposition home or self-care (01) ==
LOC: HO.LAB 10:14
PROVIDERS: PCP Internal Medicine; Visit Provider Internal Medicine
DX: E78.5 Hyperlipidemia, unspecified (principal); E55.9 Vitamin D deficiency, unspecified; E11.9 Type 2 diabetes mellitus without complications; D72.819 Decreased white blood cell count, unspecified
CPT/HCPCS: 36415; 80061; 82306; 82607; 85025

== ENCOUNTER → 2022-04-29 14:54 | Outpatient (BNVA) | payer BC, SELFPAY | PROVIDERS: PCP Internal Medicine; Visit Provider Physician Assistant Surgical | DX: Z13.89 Encounter for screening for other disorder (principal) ==

== ENCOUNTER 2022-08-04 09:28 | Outpatient (REF) | payer BC, SELFPAY ==
[2022-08-04 10:57] LABS: Creatinine Urine 192.86 mg/dL; Microalbum/Creatinine Ratio Ur 7.7 ug/mg cr
[2022-08-04 11:16] LABS: Alanine Aminotransferase 36 U/L (0-31); Albumin Level 4.2 g/dL (3.5-5.0); Alkaline Phosphatase 58 U/L (39-117); Anion Gap 12 (12-20); Aspartate Amino Transferase 16 U/L (5-31); Bilirubin Total 0.7 mg/dL (0.0-1.0); Blood Urea Nitrogen 14 mg/dL (9-16); Calcium 9.1 mg/dL (8.4-10.2); Carbon Dioxide 23 mmol/L (22-29); Chloride 105 mmol/L (96-108); Cholesterol 174 mg/dL; Estimated Glomerular Filt Rate > 60; Glucose Fasting 141 mg/dL (60-99); HDL Cholesterol 40 mg/dL; LDL Cholesterol Calculated 119 mg/dl; Potassium 4.4 mmol/L (3.3-5.1); Sodium 136 mmol/L (135-145); Total Protein 6.6 g/dL (6.5-8.0); Triglycerides 78 mg/dL
[2022-08-04 11:31] LABS: Vitamin D 25-OH Total 26.9 ng/mL (>30)
== END 2022-08-04 09:29 | disposition home or self-care (01) ==
LOC: HO.LAB 09:28
PROVIDERS: PCP Internal Medicine; Visit Provider Internal Medicine
DX: E11.9 Type 2 diabetes mellitus without complications (principal); E55.9 Vitamin D deficiency, unspecified; E78.5 Hyperlipidemia, unspecified
CPT/HCPCS: 36415; 80053; 80061; 82043; 82306

== ENCOUNTER 2023-01-21 06:01 | Outpatient (REF) | payer OTHER, SELFPAY ==
[2023-01-21 07:39] LABS: Alanine Aminotransferase 62 U/L (0-31); Alkaline Phosphatase 46 U/L (39-117); Anion Gap 15 (12-20); Aspartate Amino Transferase 30 U/L (5-31); Bilirubin Total 0.5 mg/dL (0.0-1.0); Blood Urea Nitrogen 11 mg/dL (9-16); Calcium 9.5 mg/dL (8.4-10.2); Carbon Dioxide 21 mmol/L (22-29); Chloride 104 mmol/L (96-108); Cholesterol 162 mg/dL (<200); Estimated Glomerular Filt Rate > 60; Glucose Fasting 182 mg/dL (60-99); HDL Cholesterol 50 mg/dL (>40); LDL Cholesterol Calculated 98 mg/dL (<100); Potassium 3.8 mmol/L (3.3-5.1); Sodium 136 mmol/L (135-145); Total Protein 6.9 g/dL (6.5-8.0); Triglycerides 71 mg/dL (<150)
[2023-01-21 07:53] LABS: Vitamin D 25-OH Total 29.1 ng/mL (>30)
[2023-01-21 09:22] LABS: Creatinine Urine 106.15 mg/dL; Microalbumin Urine < 5.0 mg/L
== END 2023-01-21 06:02 | disposition home or self-care (01) ==
LOC: HO.LAB 06:01
PROVIDERS: PCP Internal Medicine; Visit Provider Internal Medicine
DX: E11.9 Type 2 diabetes mellitus without complications (principal); E55.9 Vitamin D deficiency, unspecified; E78.5 Hyperlipidemia, unspecified
CPT/HCPCS: 36415; 80053; 80061; 82043; 82306; 82570

== ENCOUNTER 2023-01-21 13:18 | Outpatient (AMB) | payer OTHER, SELFPAY ==
[2023-01-21 13:28] VITALS: BP 110/64; BMI 33.6
--- NOTE | 2023-01-21 13:28 | MHC.PC.OV ---
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 Accompanied by: Self / Same As Patient Allergies sulfamethoxazole [Bactrim] Allergy (Intermediate, Verified 01/21/23 13:40) hives trimethoprim [Bactrim] Allergy (Intermediate, Verified 01/21/23 13:40) hives metformin Adverse Reaction (Intermediate, Verified 01/21/23 13:40) diarrhea Medication List - Last Reconciled 01/21/23 by Amy Aviles MD atorvastatin 40 mg PO BEDTIME 90 days blood sugar diagnostic As directed cholecalciferol (vitamin D3) 25 mcg PO DAILY 90 days metformin ER 750 mg PO BID 90 days semaglutide (Ozempic) 0.25 mg (0.368 mL) subcut QWEEK 30 days Tobacco use date assessed: 08/06/22 Dental Screening Dental Screen Date: 01/21/23 Did you have a dental visit in the last 12 months?: Yes Did you have a dental problem in the last 6 months where you did not have access to dental care?: No Was dental information given to patient?: Patient has dentist HPI HPI Comments History of Present Illness Details This is a 37-year-old female with diabetes mellitus type 2 and hyperlipidemia that comes today for follow-up on her conditions. A1c within goal. She used to be on Ozempic in the past with great results of control in blood glucose. Her LDL is not on goal but she admits not been compliant with statins. No chest pain or shortness of breath. [facility] Medical History (Updated 01/21/23 @ 14:32 by Amy Aviles MD) Severe obesity with body mass index (BMI) of 36.0 to 36.9 with serious comorbidity Dysplasia of cervix, low grade (JAMES 1) Leukopenia Class 1 obesity with body mass index (BMI) of 32.0 to 32.9 in adult Diabetes mellitus Pure hypercholesterolemia Diabetes mellitus type 2 in nonobese Hyperlipemia History of PCOS Surgical History History of hysterectomy, supracervical Hx of section Family History Father Diabetes mellitus Substance use disorder Mother Hypertension Social History Housing: House Alcohol intake: current Alcohol intake frequency: holidays/special occasions only Alcohol type: beer, wine and hard liquor Patient Tobacco Use Status: Never used Tobacco e-Cigarette/Vaping Use: Never Used Second Hand Smoke Exposure: No service: No Current occupational status: employed Current occupational exposures/hazards: No Sexual orientation: Straight/Heterosexual Cognitive needs: No Hearing needs: No Vision needs: No Female Reproductive History Menstrual Age of Menarche: 12 Questionnaire Thrive Questionnaire Date Thrive assessed: 08/06/22 CHAITANYA-7 AMB Questionnaire CHAITANYA-7 Date CHAITANYA - 7 assessed: 08/06/22 Source: Developed by Drs. Pablo Harper, Tomasa William, Eliazar Sher and colleagues, with an educational carlos from [employer]. Review of Systems Const All systems reviewed & are unremarkable except as noted in HPI and below Eyes Reports no additional complaints, Denies change in vision and Denies other visual disturbances Card Denies chest pain at rest, Denies chest pain with activity, Denies edema, Denies irregular heart rhythm, Denies claudication, Denies dyspnea, Denies dyspnea on exertion, Denies orthopnea, Denies paroxysmal nocturnal dyspnea and Denies slow heart rate Resp Denies cough, Denies dyspnea and Denies dyspnea on exertion GI Denies abdominal pain, Denies change in bowel habits, Denies excessive flatus, Denies nausea and Denies vomiting Denies urinary incontinence, Denies urinary hesitancy and Denies urinary urgency Musc Denies abnormal gait, Denies atrophy, Denies deformity and Denies limited range of motion Skin/Breast Denies bleeding lesions, Denies changing lesions and Denies rash Neuro Denies abnormal gait and Denies lack of coordination Physical exam (Primary Care) Vital Signs: Last Vital Signs BP 110/64 01/21/23 13:28 BMI result Body Mass Index 33.6 Tobacco/Smoking Status: Tobacco use Status Tobacco use date assessed 08/06/22 01/21/23 13:32 Patient Tobacco Use Status Never used Tobacco 01/21/23 13:32 e-Cigarette/Vaping Use Never Used 01/21/23 13:32 Thrive Assessment: Date of Thrive Assessment Date Thrive assessed 08/06/22 01/21/23 13:32 Eyes General: appearance normal, both eyes and all related structures Eyelids: Yes eyelids normal Conjunctivae: conjunctivae normal Neck Neck: Yes normal visual inspection and Yes supple Resp Effort & Inspection: normal respiratory effort Auscultation: clear to auscultation bilaterally Cardio Jugular venous distension: no JVD Rate: regular rate Rhythm: regular rhythm Heart sounds: S1 normal heart sound present and S2 normal heart sound present Extrem General: Yes full ROM Office Procedures Flu Questionnaire Does the patient have a severe egg allergy?: No Does the patient have severe life threatening allergies?: No Does the patient have a fever or illness today?: No Has the patient ever had Guillain-[place] Syndrome?: No Has the patient ever had any past reaction to a flu shot?: No Results AMB Hemoglobin A1c AMB Hemoglobin A1c 6.6 % Last Edit by ZACKERY Carreon on 01/21/23 13:35 Immunizations flu vacc [id number] 6mos up(PF) 60 mcg(15 mcgx4)/0.5 mL IM syringe Performing Provider: Amy Aviles MD [facility] Documented (not given) by: ZACKERY Carreon on 01/21/23 13:33 Reason Not Given: Patient Refused Results Reviewed Results Reviewed: Laboratory Last Values Hgb A1c (Clinic) 6.6 % (4.0-6.0) H 01/21/23 13:33 Assessment and Plan Assessment & Plan (1) Diabetes mellitus: Code(s): E11.9 - Type 2 diabetes mellitus without complications Qualifiers: Diabetes mellitus type: type 2 Diabetes mellitus shelter insulin use: without shelter use Diabetes mellitus complication status: without complication Qualified Code(s): E11.9 - Type 2 diabetes mellitus without complications Plan: Continue metformin. Restart Ozempic. A1c goal is equal or less than 7%. (2) Hyperlipidemia LDL goal <70: Code(s): E78.5 - Hyperlipidemia, unspecified Plan: Be compliant with statins. LDL goal is less than 70. Orders: Orders AMB Hemoglobin A1c Today E11.9 - Type 2 diabetes mellitus without complications Comprehensive [place]. Panel Fast 4 Months E11.9 - Type 2 diabetes mellitus without complications Influenza [id number] Immunization Today Z23 - Encounter for immunization Lipid Panel 4 Months E78.5 - Hyperlipidemia, unspecified Coding Level of Care Code Est Pt Level 3 (77307) Diagnoses Type 2 diabetes mellitus without complication, without long-term current use of insulin E11.9 Diabetes mellitus type: type 2 Diabetes mellitus shelter insulin use: without shelter use Diabetes mellitus complication status: without complication Hyperlipidemia LDL goal <70 E78.5 Time Spent (min) 17
== END 2023-01-21 13:45 | disposition home or self-care (01) ==
PROVIDERS: PCP Internal Medicine; Visit Provider Internal Medicine
DX: E11.9 Type 2 diabetes mellitus without complications (principal); E78.5 Hyperlipidemia, unspecified; Z23 Encounter for immunization
CPT/HCPCS: 83036; 99213

== ENCOUNTER 2023-05-03 15:18 | Outpatient (AMB) | payer OTHER, SELFPAY ==
--- NOTE | 2023-05-03 15:23 | MHC.PC.OV ---
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 Accompanied by: Self / Same As Patient Allergies sulfamethoxazole [Bactrim] Allergy (Intermediate, Verified 05/03/23 15:47) hives trimethoprim [Bactrim] Allergy (Intermediate, Verified 05/03/23 15:47) hives metformin Adverse Reaction (Intermediate, Verified 05/03/23 15:47) diarrhea Medication List - Last Reconciled 05/03/23 by Amy Aviles MD atorvastatin 40 mg PO BEDTIME 90 days blood sugar diagnostic As directed cholecalciferol (vitamin D3) 25 mcg PO DAILY 90 days metformin ER 750 mg PO BID 90 days semaglutide (Ozempic) 0.25 mg (0.368 mL) subcut QWEEK 28 days Tobacco use date assessed: 08/06/22 HPI HPI Comments History of Present Illness Details This is a 37-year-old female with diabetes mellitus type 2 and hyperlipidemia that comes today complaining of dry cough and fatigue that started about 2-3 days ago. 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 No fever. Has some chest congestion. Blood glucose well controlled with an A1c within goal. Last LDL was slightly elevated and this will be repeated. Her LDL goal should be less than 70. Compliant with medications. She is also on vitamin-D supplements due to having low vitamin-D. [facility] Medical History (Updated 05/03/23 @ 16:07 by Amy Aviles MD) Severe obesity with body mass index (BMI) of 36.0 to 36.9 with serious comorbidity Dysplasia of cervix, low grade (JAMES 1) Leukopenia Class 1 obesity with body mass index (BMI) of 32.0 to 32.9 in adult Diabetes mellitus Pure hypercholesterolemia Diabetes mellitus type 2 in nonobese Hyperlipemia History of PCOS Surgical History History of hysterectomy, supracervical Hx of section Family History Father Diabetes mellitus Substance use disorder Mother Hypertension Social History Housing: House Alcohol intake: current Alcohol intake frequency: holidays/special occasions only Alcohol type: beer, wine and hard liquor Patient Tobacco Use Status: Never used Tobacco e-Cigarette/Vaping Use: Never Used Second Hand Smoke Exposure: No service: No Current occupational status: employed Current occupational exposures/hazards: No Sexual orientation: Straight/Heterosexual Cognitive needs: No Hearing needs: No Vision needs: No Female Reproductive History Menstrual Age of Menarche: 12 Questionnaire PHQ-9 Over the last 2 weeks, how often have you been bothered by any of the following problems? 1. Little interest or pleasure in doing things: not at all 2. Feeling down, depressed, or hopeless: not at all 3. Trouble falling or staying asleep, or sleeping too much: not at all 4. Feeling tired or having little energy: not at all 5. Poor appetite or overeating: not at all 6. Feeling bad about yourself - or that you are a failure or have let yourself or your family down: not at all 7. Trouble concentrating on things, such as reading the newspaper or watching television: not at all 8. Moving or speaking so slowly that other people could have noticed. Or the opposite - being so fidgety or restless that you have been moving around a lot more than usual: not at all 9. Thoughts that you would be better off or of hurting yourself in some way: not at all Total score: 0 Depression Screening Interpretation: Negative Depression Screening Done: Yes 51376 - PHQ-9 Billing: Yes Source: Developed by Drs. Pablo Harper, Tomasa William, Eliazar Sher and colleagues, with an educational carlos from [employer]. Thrive Questionnaire Date Thrive assessed: 05/03/23 I am a: Patient What is your living situation today?: I have a steady place to live Within the past 12 months, did the food you bought not last and you didn't have the money to get more?: Never true Within the past 12 months, did you worry whether your food would run out before you got money to buy more?: Never true Do you have trouble paying for medicines?: No Do you have trouble getting transportation to medical appointments?: No Do you have trouble paying your heating and electricity bill?: No Do you have trouble taking care of your child, family member or friend?: No Do you have trouble with day-to-day activities such as bathing, preparing meals, shopping, managing finances, etc.?: No Are you currently unemployed and looking for a job?: No Are you interested in more education?: No Please select the resources that you would like help with: None AUDIT C Alcohol Use Questionnaire (AUDIT-C) 1. How often do you have a drink containing alcohol?: Monthly or less 2. How many drinks containing alcohol do you have on a typical day when you are drinking?: 1 or 2 3. How often do you have six or more drinks on one occasion?: Never Total Score: 1 Score Reviewed/Action Taken: No CHAITANYA-7 AMB Questionnaire CHAITANYA-7 Date CHAITANYA - 7 assessed: 05/03/23 Feeling nervous, anxious, or on edge: 3 = Nearly every day Not being able to stop or control worryin = Several days Worrying too much about different things: 3 = Nearly every day Trouble relaxin = Nearly every day Being so restless that it is hard to sit still: 1 = Several days Becoming easily annoyed or irritable: 3 = Nearly every day Feeling afraid as if something awful might happen: 0 = Not at all Total CHAITANYA-7 score (0-4 normal; 5-9 mild; 10-14 moderate; 15-21 severe): 14 Source: Developed by Drs. Pablo Harper, Tomasa William, Eliazar Sher and colleagues, with an educational carlos from [employer]. CHAITANYA-7 Assessment Billing CHAITANYA-7 Assessment Tool: CHAITANYA-7 Assessment 71526 Review of Systems Const All systems reviewed & are unremarkable except as noted in HPI and below Eyes Reports no additional complaints, Denies change in vision and Denies other visual disturbances Card Denies chest pain at rest, Denies chest pain with activity, Denies edema, Denies irregular heart rhythm, Denies claudication, Denies dyspnea, Denies dyspnea on exertion, Denies orthopnea, Denies paroxysmal nocturnal dyspnea and Denies slow heart rate Resp Denies cough, Denies dyspnea and Denies dyspnea on exertion GI Denies abdominal pain, Denies change in bowel habits, Denies excessive flatus, Denies nausea and Denies vomiting Denies urinary incontinence, Denies urinary hesitancy and Denies urinary urgency Musc Denies abnormal gait, Denies atrophy, Denies deformity and Denies limited range of motion Skin/Breast Denies bleeding lesions, Denies changing lesions and Denies rash Neuro Denies abnormal gait and Denies lack of coordination Physical exam (Primary Care) Vital Signs: Last Vital Signs BP 110/76 05/03/23 15:25 BMI result Body Mass Index 30.3 Tobacco/Smoking Status: Tobacco use Status Tobacco use date assessed 08/06/22 05/03/23 15:25 Patient Tobacco Use Status Never used Tobacco 05/03/23 15:25 e-Cigarette/Vaping Use Never Used 05/03/23 15:25 PHQ-9: PHQ-9 Score PHQ-9: Total score 0 05/03/23 15:55 Depression Screening Interpretation: Negative Thrive Assessment: Date of Thrive Assessment Date Thrive assessed 05/03/23 05/03/23 15:32 Eyes General: appearance normal, both eyes and all related structures Eyelids: Yes eyelids normal Conjunctivae: conjunctivae normal Neck Neck: Yes normal visual inspection and Yes supple Resp Effort & Inspection: normal respiratory effort Auscultation: clear to auscultation bilaterally Cardio Jugular venous distension: no JVD Rate: regular rate Rhythm: regular rhythm Heart sounds: S1 normal heart sound present and S2 normal heart sound present Extrem General: Yes full ROM Office Procedures Flu Questionnaire Does the patient have a severe egg allergy?: No Results AMB Hemoglobin A1c AMB Hemoglobin A1c 6.5 % Last Edit by ZACKERY Carreon on 05/03/23 15:38 Immunizations flu vacc [id number] 6mos up(PF) 60 mcg(15 mcgx4)/0.5 mL IM syringe Performing Provider: Amy Aviles MD Performing Location: [facility] [place] [facility] Documented (not given) by: ZACKERY Carreon on 05/03/23 15:33 Reason Not Given: Patient Refused Results Reviewed Results Reviewed: Laboratory Last Values Hgb A1c (Clinic) 6.5 % (4.0-6.0) H 05/03/23 15:32 Assessment and Plan Assessment & Plan (1) URI (upper respiratory infection): Code(s): J06.9 - Acute upper respiratory infection, unspecified Plan: Start doxycycline. 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 A1c goal is equal or less than 7%. (3) Hyperlipidemia LDL goal <70: Code(s): E78.5 - Hyperlipidemia, unspecified Plan: Continue statins. LDL goal less than 70. (4) Hypovitaminosis D: Code(s): E55.9 - Vitamin D deficiency, unspecified Plan: Continue vitamin-D supplements. Orders: Orders AMB Hemoglobin A1c Today E11.9 - Type 2 diabetes mellitus without complications Influenza [id number] Immunization Today Z23 - Encounter for immunization SARS-CoV2/FLU/RSV Today R09.89 - Other specified symptoms and signs involving the circulatory and respiratory systems Medications: New semaglutide (Ozempic) 0.5 mg (0.736 mL) subcut QWEEK 3.68 mL 6RF 30 days E11.9 - Type 2 diabetes mellitus without complications doxycycline hyclate 100 mg PO BID 10 caps 0RF 5 days Discontinued semaglutide (Ozempic) for 4 weeks Discontinued Reason: Patient Completed Course 0.25 mg (0.368 mL) subcut QWEEK 28 days 1.472 mL 0RF E11.9 - Type 2 diabetes mellitus without complications Coding Level of Care Code Est Pt Level 4 (18750) Diagnoses URI (upper respiratory infection) J06.9 Type 2 diabetes mellitus without complication, without long-term current use of insulin E11.9 Diabetes mellitus type: type 2 Diabetes mellitus oysterman insulin use: without fci use Diabetes mellitus complication status: without complication Hyperlipidemia LDL goal <70 E78.5 Hypovitaminosis D E55.9 Additional Codes CHAITANYA-7 Assessment Billing - CHAITANYA-7 Assessment Tool: CHAITANYA-7 Assessment 98616 ([id number]) Time Spent (min) 22
[2023-05-03 15:25] VITALS: BP 110/76; BMI 30.3
== END 2023-05-03 15:53 | disposition home or self-care (01) ==
PROVIDERS: PCP Internal Medicine; Visit Provider Internal Medicine
DX: J06.9 Acute upper respiratory infection, unspecified (principal); E11.69 Type 2 diabetes mellitus with other specified complication; E78.5 Hyperlipidemia, unspecified; E55.9 Vitamin D deficiency, unspecified
CPT/HCPCS: 83036; 99214

== ENCOUNTER 2023-05-03 15:56 | Outpatient (REF) | payer OTHER, SELFPAY ==
[2023-05-03 16:32] LABS: COVID-19 Test Negative (Negative); IDNOW Serial# 152EDE1D; IDNOW Serial# 9DB6401D; Influenza A Negative (Negative); Influenza B2 Negative (Negative)
== END 2023-05-03 15:57 | disposition home or self-care (01) ==
LOC: HO.LAB 15:56
PROVIDERS: PCP Internal Medicine; Visit Provider Internal Medicine
DX: E11.9 Type 2 diabetes mellitus without complications (principal); R09.89 Other specified symptoms and signs involving the circulatory and respiratory systems; Z20.822 Contact with and (suspected) exposure to COVID-19
CPT/HCPCS: 87502; 87635

== ENCOUNTER 2023-06-08 07:31 | Outpatient (AMB) | payer OTHER, SELFPAY ==
[2023-06-08 07:32] VITALS: BP 112/72; BMI 30.7
--- NOTE | 2023-06-08 07:32 | A.OFFPC_ITS ---
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 Accompanied by: Self / Same As Patient Allergies sulfamethoxazole [Bactrim] Allergy (Intermediate, Verified 06/08/23 08:01) hives trimethoprim [Bactrim] Allergy (Intermediate, Verified 06/08/23 08:01) hives metformin Adverse Reaction (Intermediate, Verified 06/08/23 08:01) diarrhea Medication List - Last Reconciled 06/08/23 by Amy Aviles MD atorvastatin 40 mg PO BEDTIME 90 days blood sugar diagnostic As directed cholecalciferol (vitamin D3) 25 mcg PO DAILY 90 days metformin ER 750 mg PO BID 90 days semaglutide (Ozempic) 0.5 mg (0.736 mL) subcut QWEEK 30 days Tobacco use date assessed: 06/08/23 Dental Screening Dental Screen Date: 06/08/23 Did you have a dental visit in the last 12 months?: Yes Did you have a dental problem in the last 6 months where you did not have access to dental care?: No Was dental information given to patient?: Patient has dentist HPI HPI Comments History of Present Illness Details This is a 38-year-old female with diabetes mellitus type 2, hyperlipidemia, obesity and low vitamin-D that comes today for follow-up on her conditions. Last A1c was within goal. Lipid panel and vitamin-D levels were ordered. She is compliant with her medications. She is obese with a BMI of 30.7 and goes to the gym every day. I advised to eat less or skip a meal. No chest pain or shortness of breath. [facility] Medical History (Updated 06/08/23 @ 08:20 by Amy Aviles MD) Severe obesity with body mass index (BMI) of 36.0 to 36.9 with serious comorbidity Dysplasia of cervix, low grade (JAMES 1) Leukopenia Class 1 obesity with body mass index (BMI) of 32.0 to 32.9 in adult Diabetes mellitus Pure hypercholesterolemia Diabetes mellitus type 2 in nonobese Hyperlipemia History of PCOS Surgical History History of hysterectomy, supracervical Hx of section Family History Father Diabetes mellitus Substance use disorder Mother Hypertension Social History Housing: House Alcohol intake: current Alcohol intake frequency: holidays/special occasions only Alcohol type: beer, wine and hard liquor Patient Tobacco Use Status: Never used Tobacco e-Cigarette/Vaping Use: Never Used Second Hand Smoke Exposure: No service: No Current occupational status: employed Current occupational exposures/hazards: No Sexual orientation: Straight/Heterosexual Cognitive needs: No Hearing needs: No Vision needs: No Female Reproductive History Menstrual Age of Menarche: 12 Questionnaire Thrive Questionnaire Date Thrive assessed: 05/03/23 CHAITANYA-7 AMB Questionnaire CHAITANYA-7 Date CHAITANYA - 7 assessed: 05/03/23 Source: Developed by Drs. Pablo Harper, Tomasa William, Eliazar quinteros nd colleagues, with an educational carlos from [employer]. Review of Systems Const All systems reviewed & are unremarkable except as noted in HPI and below Eyes Reports no additional complaints, Denies change in vision and Denies other visual disturbances Card Denies chest pain at rest, Denies chest pain with activity, Denies edema, Denies irregular heart rhythm, Denies claudication, Denies dyspnea, Denies dyspnea on exertion, Denies orthopnea, Denies paroxysmal nocturnal dyspnea and Denies slow heart rate Resp Denies cough, Denies dyspnea and Denies dyspnea on exertion GI Denies abdominal pain, Denies change in bowel habits, Denies excessive flatus, Denies nausea and Denies vomiting Denies urinary incontinence, Denies urinary hesitancy and Denies urinary urgency Musc Denies abnormal gait, Denies atrophy, Denies deformity and Denies limited range of motion Skin/Breast Denies bleeding lesions, Denies changing lesions and Denies rash Neuro Denies abnormal gait, Denies behavioral changes and Denies lack of coordination Psych Denies behavioral changes Physical exam (Primary Care) Vital Signs: Last Vital Signs BP 112/72 06/08/23 07:32 BMI result Body Mass Index 30.7 Tobacco/Smoking Status: Tobacco use Status Tobacco use date assessed 06/08/23 06/08/23 07:37 Patient Tobacco Use Status Never used Tobacco 06/08/23 07:37 e-Cigarette/Vaping Use Never Used 06/08/23 07:37 Thrive Assessment: Date of Thrive Assessment Date Thrive assessed 05/03/23 06/08/23 07:37 Eyes General: appearance normal, both eyes and all related structures Eyelids: Yes eyelids normal Conjunctivae: conjunctivae normal Neck Neck: Yes normal visual inspection and Yes supple Resp Effort & Inspection: normal respiratory effort Auscultation: clear to auscultation bilaterally Cardio Jugular venous distension: no JVD Rate: regular rate Rhythm: regular rhythm Heart sounds: S1 normal heart sound present and S2 normal heart sound present Extrem General: Yes full ROM Assessment and Plan Assessment & Plan (1) Diabetes mellitus: Code(s): E11.9 - Type 2 diabetes mellitus without complications Qualifiers: Diabetes mellitus type: type 2 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 A1c goal is equal or less than 7%. (2) Hyperlipidemia LDL goal <70: Code(s): E78.5 - Hyperlipidemia, unspecified Plan: Continue statins. LDL goal is less than 70. (3) Hypovitaminosis D: Code(s): E55.9 - Vitamin D deficiency, unspecified Plan: Continue vitamin-D supplementation. (4) Obesity (BMI 30.0-34.9): Code(s): E66.9 - Obesity, unspecified Plan: Continue exercise. Start diet. BMI goal is less than 30. Orders: Orders Comprehensive [place]. Panel Fast Today E78.5 - Hyperlipidemia, unspecified Lipid Panel Today E78.5 - Hyperlipidemia, unspecified Microalbumin, Random (w Creat) Today E11.9 - Type 2 diabetes mellitus without complications Coding Level of Care Code Est Pt Level 4 (17191) Diagnoses Type 2 diabetes mellitus without complication, without long-term current use of insulin E11.9 Diabetes mellitus type: type 2 Diabetes mellitus group home insulin use: without group home use Diabetes mellitus complication status: without complication Hyperlipidemia LDL goal <70 E78.5 Hypovitaminosis D E55.9 Obesity (BMI 30.0-34.9) E66.9 Time Spent (min) 21
== END 2023-06-08 08:09 | disposition home or self-care (01) ==
PROVIDERS: PCP Internal Medicine; Visit Provider Internal Medicine
DX: E11.69 Type 2 diabetes mellitus with other specified complication (principal); E78.5 Hyperlipidemia, unspecified; E66.9 Obesity, unspecified; Z68.30 Body mass index [BMI] 30.0-30.9, adult; E55.9 Vitamin D deficiency, unspecified
CPT/HCPCS: 99214

== ENCOUNTER 2023-08-05 06:23 | Outpatient (REF) | payer OTHER, SELFPAY ==
[2023-08-05 08:09] LABS: Creatinine Urine 196.67 mg/dL; Microalbum/Creatinine Ratio Ur 5.5 ug/mg cr (<30)
[2023-08-05 08:12] LABS: Alanine Aminotransferase 40 U/L (0-31); Alkaline Phosphatase 49 U/L (39-117); Anion Gap 10 (12-20); Aspartate Amino Transferase 22 U/L (5-31); Bilirubin Total 0.4 mg/dL (0.0-1.0); Blood Urea Nitrogen 20 mg/dL (9-16); Carbon Dioxide 23 mmol/L (22-29); Chloride 109 mmol/L (96-108); Cholesterol 203 mg/dL (<200); Estimated Glomerular Filt Rate > 60; Glucose Fasting 111 mg/dL (60-99); HDL Cholesterol 47 mg/dL (>40); LDL Cholesterol Calculated 142 mg/dL (<100); Potassium 4.2 mmol/L (3.3-5.1); Sodium 138 mmol/L (135-145); Total Protein 7.2 g/dL (6.5-8.0); Triglycerides 72 mg/dL (<150)
== END 2023-08-05 06:24 | disposition home or self-care (01) ==
LOC: HO.LAB 06:23
PROVIDERS: PCP Internal Medicine; Visit Provider Internal Medicine
DX: E11.9 Type 2 diabetes mellitus without complications (principal); E78.5 Hyperlipidemia, unspecified
CPT/HCPCS: 36415; 80053; 80061; 82043; 82570

== ENCOUNTER 2023-08-10 09:13 | Outpatient (AMB) | payer OTHER, SELFPAY ==
[2023-08-10 09:21] VITALS: BP 118/70; O2SAT 98; BMI 29.7
--- NOTE | 2023-08-10 09:21 | MHC.PC.OV ---
Vital Signs 08/10/23 09:21 Height 5 ft 1.5 in Weight 160 lb 0.8 oz BMI 29.7 BP 118/70 Blood Pressure Location Lt brachial Position Sitting Pulse Source Pulse Oximeter Pulse Oximetry (%) 98 Oxygen Delivery Method Room Air Intake Visit Reasons: Annual Exam Intake Note: Patient is here today for a physical. Safety And Security Manager Required: No Accompanied by: Self / Same As Patient Allergies sulfamethoxazole [Bactrim] Allergy (Intermediate, Verified 08/10/23 09:39) hives trimethoprim [Bactrim] Allergy (Intermediate, Verified 08/10/23 09:39) hives metformin Adverse Reaction (Intermediate, Verified 08/10/23 09:39) diarrhea Medication List - Last Reconciled 08/10/23 by Amy Aviles MD atorvastatin 40 mg PO BEDTIME 90 days blood sugar diagnostic As directed cholecalciferol (vitamin D3) 25 mcg PO DAILY 90 days metformin ER 750 mg PO BID 90 days semaglutide (Ozempic) 0.5 mg (0.736 mL) subcut QWEEK 30 days Tobacco use date assessed: 08/10/23 Dental Screening Dental Screen Date: 08/10/23 Did you have a dental visit in the last 12 months?: No Did you have a dental problem in the last 6 months where you did not have access to dental care?: No Was dental information given to patient?: Patient has dentist HPI HPI Comments History of Present Illness Details This is a 38-year-old female with diabetes mellitus type 2 that comes for her physical exam. A1c within goal. No Pap smear needed due to hysterectomy. Denies any chest pain or shortness of breath. LDL is not on goal and she admits not being compliant to statins. Last diabetic eye exam was over a year ago and will be referred to Ophthalmology. [facility] Medical History Severe obesity with body mass index (BMI) of 36.0 to 36.9 with serious comorbidity Dysplasia of cervix, low grade (JAMES 1) Leukopenia Class 1 obesity with body mass index (BMI) of 32.0 to 32.9 in adult Diabetes mellitus Pure hypercholesterolemia Diabetes mellitus type 2 in nonobese Hyperlipemia History of PCOS Surgical History History of hysterectomy, supracervical Hx of section Family History Father Diabetes mellitus Substance use disorder Mother Hypertension Social History Housing: House Alcohol intake: current Alcohol intake frequency: holidays/special occasions only Alcohol type: beer, wine and hard liquor Patient Tobacco Use Status: Never used Tobacco e-Cigarette/Vaping Use: Never Used Second Hand Smoke Exposure: No service: No Current occupational status: employed Current occupational exposures/hazards: No Sexual orientation: Straight/Heterosexual Cognitive needs: No Hearing needs: No Vision needs: No Female Reproductive History Menstrual Age of Menarche: 12 Questionnaire PHQ-9 Over the last 2 weeks, how often have you been bothered by any of the following problems? 1. Little interest or pleasure in doing things: not at all 2. Feeling down, depressed, or hopeless: not at all 3. Trouble falling or staying asleep, or sleeping too much: not at all 4. Feeling tired or having little energy: not at all 5. Poor appetite or overeating: not at all 6. Feeling bad about yourself - or that you are a failure or have let yourself or your family down: not at all 7. Trouble concentrating on things, such as reading the newspaper or watching television: not at all 8. Moving or speaking so slowly that other people could have noticed. Or the opposite - being so fidgety or restless that you have been moving around a lot more than usual: not at all 9. Thoughts that you would be better off or of hurting yourself in some way: not at all Total score: 0 Depression Screening Interpretation: Negative Depression Screening Done: Yes 20587 - PHQ-9 Billing: Yes Source: Developed by Drs. Pablo Harper, Tomasa William, Eliazar Sher and colleagues, with an educational carlos from [employer]. Thrive Questionnaire Date Thrive assessed: 08/10/23 I am a: Patient What is your living situation today?: I have a steady place to live Within the past 12 months, did the food you bought not last and you didn't have the money to get more?: Never true Within the past 12 months, did you worry whether your food would run out before you got money to buy more?: Never true Do you have trouble paying for medicines?: No Do you have trouble getting transportation to medical appointments?: No Do you have trouble paying your heating and electricity bill?: No Do you have trouble taking care of your child, family member or friend?: No Do you have trouble with day-to-day activities such as bathing, preparing meals, shopping, managing finances, etc.?: No Are you currently unemployed and looking for a job?: No Are you interested in more education?: No Please select the resources that you would like help with: None Currently or been in a relationship where the following occur: no concerns reported THRIVE Score: 0 AUDIT C Alcohol Use Questionnaire (AUDIT-C) 1. How often do you have a drink containing alcohol?: Monthly or less 2. How many drinks containing alcohol do you have on a typical day when you are drinking?: 1 or 2 3. How often do you have six or more drinks on one occasion?: Never Total Score: 1 Score Reviewed/Action Taken: No CHAITANYA-7 AMB Questionnaire CHAITANYA-7 Date CHAITANYA - 7 assessed: 08/10/23 Feeling nervous, anxious, or on edge: 0 = Not at all Not being able to stop or control worryin = Not at all Worrying too much about different things: 0 = Not at all Trouble relaxin = Not at all Being so restless that it is hard to sit still: 0 = Not at all Becoming easily annoyed or irritable: 0 = Not at all Feeling afraid as if something awful might happen: 0 = Not at all Total CHAITANYA-7 score (0-4 normal; 5-9 mild; 10-14 moderate; 15-21 severe): 0 Source: Developed by Drs. Pablo Harper, Tomasa William, Eliazar Sher and colleagues, with an educational carlos from [employer]. CHAITANYA-7 Assessment Billing CHAITANYA-7 Assessment Tool: CHAITANYA-7 Assessment 87858 Review of Systems Const All systems reviewed & are unremarkable except as noted in HPI and below Eyes Reports no additional complaints, Denies change in vision and Denies other visual disturbances Card Denies chest pain at rest, Denies chest pain with activity, Denies edema, Denies irregular heart rhythm, Denies claudication, Denies dyspnea, Denies dyspnea on exertion, Denies orthopnea, Denies paroxysmal nocturnal dyspnea and Denies slow heart rate Resp Denies cough, Denies dyspnea and Denies dyspnea on exertion Musc Denies abnormal gait Skin/Breast Denies bleeding lesions, Denies changing lesions and Denies rash Neuro Denies abnormal gait, Denies behavioral changes, Denies confusion and Denies lack of coordination Psych Denies behavioral changes and Denies confusion Physical exam (Primary Care) Vital Signs: Last Vital Signs BP 118/70 08/10/23 09:21 Pulse Ox 98 08/10/23 09:21 Oxygen Delivery Method Room Air 08/10/23 09:21 BMI result Body Mass Index 29.7 Tobacco/Smoking Status: Tobacco use Status Tobacco use date assessed 08/10/23 08/10/23 09:23 Patient Tobacco Use Status Never used Tobacco 08/10/23 09:21 e-Cigarette/Vaping Use Never Used 08/10/23 09:21 PHQ-9: PHQ-9 Score PHQ-9: Total score 0 08/10/23 09:37 Depression Screening Interpretation: Negative Thrive Assessment: Date of Thrive Assessment Date Thrive assessed 08/10/23 08/10/23 09:23 Currently or been in a relationship where the following occur: no concerns reported Const General: No confusion Orientation/consciousness: patient oriented x3 and No confusion HENMT Head: Yes normal to inspection, Yes normocephalic and Yes atraumatic Ears: external ears normal Eyes General: appearance normal, both eyes and all related structures Eyelids: Yes eyelids normal Conjunctivae: conjunctivae normal Neck Neck: Yes normal visual inspection and Yes supple Resp Effort & Inspection: normal respiratory effort Auscultation: clear to auscultation bilaterally Cardio Jugular venous distension: no JVD Rate: regular rate Rhythm: regular rhythm Heart sounds: S1 normal heart sound present and S2 normal heart sound present GI Inspection: Yes normal to inspection Palpation (GI): Soft to palpation and nontender Auscultation: normal bowel sounds Skin General skin exam: no rashes or lesions noted Neuro General: patient oriented x3, no focal motor deficits and No confusion Extrem General: Yes full ROM Psych Appearance: grossly normal Results AMB Hemoglobin A1c AMB Hemoglobin A1c 5.4 % Last Edit by ZACKERY Dobbs on 08/10/23 09:33 Results Reviewed Results Reviewed: Laboratory Last Values Hgb A1c (Clinic) 5.4 % (4.0-6.0) 08/10/23 09:21 Assessment and Plan Assessment & Plan (1) Physical exam: Code(s): Z00.00 - Encounter for general adult medical examination without abnormal findings Plan: Repeat in a year. (2) Diabetes mellitus: Code(s): E11.9 - Type 2 diabetes mellitus without complications Qualifiers: Diabetes mellitus type: type 2 Diabetes mellitus alf insulin use: without intermediate project manager use Diabetes mellitus complication status: without complication Qualified Code(s): E11.9 - Type 2 diabetes mellitus without complications Plan: Continue Ozempic. A1c goal is equal or less than 7%. Do yearly diabetic eye exam. Orders: Orders Vitamin D 25-OH Total 4 Months E55.9 - Vitamin D deficiency, unspecified Lipid Panel 4 Months E78.5 - Hyperlipidemia, unspecified Comprehensive [place]. Panel Fast 4 Months E11.9 - Type 2 diabetes mellitus without complications AMB Hemoglobin A1c Today E11.9 - Type 2 diabetes mellitus without complications Microalbumin, Random (w Creat) 4 Months E11.9 - Type 2 diabetes mellitus without complications Referrals Ophthalmology Referral E11.9 - Type 2 diabetes mellitus without complications Medications: New semaglutide (Ozempic) 1 mg (0.75 mL) subcut QWEEK 3.75 mL 6RF 30 days E11.9 - Type 2 diabetes mellitus without complications sumatriptan succinate do not exceed 8 doses per 24 hrs 25 mg PO Q2-4H PRN 9 tabs 0RF migraine headache 30 days Refilled atorvastatin 40 mg PO BEDTIME 90 tabs 1RF 90 days E78.5 - Hyperlipidemia, unspecified Discontinued semaglutide (Ozempic) Discontinued Reason: Patient Completed Course 0.5 mg (0.736 mL) subcut QWEEK 30 days 3.68 mL 6RF E11.9 - Type 2 diabetes mellitus without complications metformin ER Discontinued Reason: Patient Refused 750 mg PO BID 90 days 180 tabs 1RF Coding Level of Care Code Est Pt Prev Care 18-39y(85192) Diagnoses Physical exam Z00.00 Type 2 diabetes mellitus without complication, without long-term current use of insulin E11.9 Diabetes mellitus type: type 2 Diabetes mellitus alf insulin use: without alf use Diabetes mellitus complication status: without complication Additional Codes CHAITANYA-7 Assessment Billing - CHAITANYA-7 Assessment Tool: CHAITANYA-7 Assessment 49951 ([id number]) Time Spent (min) 31
== END 2023-08-10 09:53 | disposition home or self-care (01) ==
PROVIDERS: Visit Provider Internal Medicine
DX: Z00.00 Encounter for general adult medical examination without abnormal findings (principal); E11.9 Type 2 diabetes mellitus without complications
CPT/HCPCS: 83036; 99395

== ENCOUNTER 2023-12-15 16:20 | Outpatient (AMB) | payer OTHER, SELFPAY ==
[2023-12-15 16:28] VITALS: BP 110/78; BMI 29.4
--- NOTE | 2023-12-15 16:28 | A.OFFPC_ITS ---
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 Accompanied by: Self / Same As Patient Allergies sulfamethoxazole [Bactrim] Allergy (Intermediate, Verified 12/15/23 16:35) hives trimethoprim [Bactrim] Allergy (Intermediate, Verified 12/15/23 16:35) hives metformin Adverse Reaction (Intermediate, Verified 12/15/23 16:35) diarrhea Medication List - Last Reconciled 12/15/23 by Amy Aviles MD atorvastatin 40 mg PO BEDTIME 90 days blood sugar diagnostic As directed semaglutide (Ozempic) 1 mg (0.75 mL) subcut QWEEK 30 days sumatriptan succinate 25 mg PO Q2-4H PRN 30 days Tobacco use date assessed: 08/10/23 Dental Screening Dental Screen Date: 12/15/23 Did you have a dental visit in the last 12 months?: Yes Did you have a dental problem in the last 6 months where you did not have access to dental care?: No Was dental information given to patient?: Patient has dentist HPI HPI Comments History of Present Illness Details This is a 38-year-old female with diabetes mellitus type 2 and h yperlipidemia that complains of left knee pain that has been present for few months. Denies any previous trauma. The pain is present who when doing exercise and when going down the stairs. Will order x-ray and refer to ortho. A1c within goal. LDL not on goal but she admits not being compliant with statins. Dietary changes were also advised. [facility] Medical History (Updated 12/15/23 @ 16:43 by Amy Aviles MD) Severe obesity with body mass index (BMI) of 36.0 to 36.9 with serious comorbidity Dysplasia of cervix, low grade (JAMES 1) Leukopenia Class 1 obesity with body mass index (BMI) of 32.0 to 32.9 in adult Diabetes mellitus Pure hypercholesterolemia Diabetes mellitus type 2 in nonobese Hyperlipemia History of PCOS Surgical History History of hysterectomy, supracervical Hx of section Family History Father Diabetes mellitus Substance use disorder Mother Hypertension Social History Housing: House Alcohol intake: current Alcohol intake frequency: holidays/special occasions only Alcohol type: beer, wine and hard liquor Patient Tobacco Use Status: Never used Tobacco e-Cigarette/Vaping Use: Never Used Second Hand Smoke Exposure: No service: No Current occupational status: employed Current occupational exposures/hazards: No Sexual orientation: Straight/Heterosexual Cognitive needs: No Hearing needs: No Vision needs: No Female Reproductive History Menstrual Age of Menarche: 12 Questionnaire Thrive Questionnaire Date Thrive assessed: 08/10/23 CHAITANYA-7 AMB Questionnaire CHAITANYA-7 Date CHAITANYA - 7 assessed: 08/10/23 Source: Developed by Drs. Pablo Harper, Tomasa William, Eliazar Sher and colleagues, with an educational carlos from [employer]. Review of Systems Const All systems reviewed & are unremarkable except as noted in HPI and below Card Denies chest pain at rest, Denies chest pain with activity, Denies edema, Denies irregular heart rhythm, Denies claudication, Denies dyspnea, Denies dyspnea on exertion, Denies orthopnea, Denies paroxysmal nocturnal dyspnea and Denies slow heart rate Resp Denies cough, Denies dyspnea and Denies dyspnea on exertion GI Denies abdominal pain, Denies change in bowel habits, Denies excessive flatus, Denies nausea and Denies vomiting Denies urinary incontinence, Denies urinary hesitancy and Denies urinary urgency Musc Denies atrophy, Denies deformity and Denies limited range of motion Skin/Breast Denies bleeding lesions, Denies changing lesions and Denies rash Physical exam (Primary Care) Vital Signs: Last Vital Signs BP 110/78 12/15/23 16:28 BMI result Body Mass Index 29.4 Tobacco/Smoking Status: Tobacco use Status Tobacco use date assessed 08/10/23 12/15/23 16:32 Patient Tobacco Use Status Never used Tobacco 12/15/23 16:32 e-Cigarette/Vaping Use Never Used 12/15/23 16:32 Thrive Assessment: Date of Thrive Assessment Date Thrive assessed 08/10/23 12/15/23 16:32 Resp Effort & Inspection: normal respiratory effort Auscultation: clear to auscultation bilaterally Cardio Jugular venous distension: no JVD Rate: regular rate Rhythm: regular rhythm Heart sounds: S1 normal heart sound present and S2 normal heart sound present Extrem General: Yes full ROM Results AMB Hemoglobin A1c AMB Hemoglobin A1c 5.2 % Last Edit by ZACKERY Carreon on 12/15/23 16:4 5 Results Reviewed Results Reviewed: Laboratory Last Values Hgb A1c (Clinic) 5.2 % (4.0-6.0) 12/15/23 16:44 Assessment and Plan Assessment & Plan (1) Diabetes mellitus: Code(s): E11.9 - Type 2 diabetes mellitus without complications Qualifiers: Diabetes mellitus type: type 2 Diabetes mellitus long chain quiller tender insulin use: without chcf use Diabetes mellitus complication status: without complication Qualified Code(s): E11.9 - Type 2 diabetes mellitus without complications Plan: Increase Ozempic. A1c goal is equal or less than 7%. (2) Hyperlipidemia LDL goal <70: Code(s): E78.5 - Hyperlipidemia, unspecified Plan: Be compliant with statins. LDL goal is less than 70. (3) Left knee pain: Code(s): M25.562 - Pain in left knee Plan: X-ray ordered. Referred to Ortho. Orders: Orders Microalbumin, Random (w Creat) Today E11.9 - Type 2 diabetes mellitus without complications Vitamin D 25-OH Total Today E55.9 - Vitamin D deficiency, unspecified XR knee LT 2V Today M25.562 - Pain in left knee Lipid Panel Today E78.5 - Hyperlipidemia, unspecified Comprehensive [place]. Panel Fast Today E11.9 - Type 2 diabetes mellitus without complications AMB Hemoglobin A1c Today E11.9 - Type 2 diabetes mellitus without complications Referrals Orthopedics Referral M25.562 - Pain in left knee Medications: New semaglutide (Ozempic) 2 mg (0.75 mL) subcut QWEEK 3 mL 3RF 4 weeks E11.9 - Type 2 diabetes mellitus without complications Discontinued semaglutide (Ozempic) Discontinued Reason: Patient Completed Course 1 mg (0.75 mL) subcut QWEEK 30 days 3.75 mL 6RF E11.9 - Type 2 diabetes mellitus without complications Coding Level of Care Code Est Pt Level 3 (59521) Complex EM visit Add On G2211 Diagnoses Type 2 diabetes mellitus without complication, without long-term current use of insulin E11.9 Diabetes mellitus type: type 2 Diabetes mellitus long chain quiller tender insulin use: without long chain quiller tender use Diabetes mellitus complication status: without complication Hyperlipidemia LDL goal <70 E78.5 Left knee pain M25.562 Time Spent (min) 19
== END 2023-12-15 16:50 | disposition home or self-care (01) ==
PROVIDERS: PCP Internal Medicine; Visit Provider Internal Medicine
DX: E11.69 Type 2 diabetes mellitus with other specified complication (principal); E78.5 Hyperlipidemia, unspecified; M25.562 Pain in left knee
CPT/HCPCS: 83036; 99213; G2211

== ENCOUNTER 2023-12-29 05:57 | Outpatient (REF) | payer OTHER, SELFPAY ==
[2023-12-29 07:34] LABS: Alanine Aminotransferase 33 U/L (0-31); Alkaline Phosphatase 47 U/L (39-117); Anion Gap 11 (12-20); Aspartate Amino Transferase 22 U/L (5-31); Bilirubin Total 0.8 mg/dL (0.0-1.0); Blood Urea Nitrogen 12 mg/dL (9-16); Carbon Dioxide 25 mmol/L (22-29); Chloride 106 mmol/L (96-108); Cholesterol 191 mg/dL (<200); Estimated Glomerular Filt Rate > 60; Glucose Fasting 97 mg/dL (60-99); HDL Cholesterol 46 mg/dL (>40); LDL Cholesterol Calculated 136 mg/dL (<100); Potassium 3.8 mmol/L (3.3-5.1); Sodium 138 mmol/L (135-145); Total Protein 6.8 g/dL (6.5-8.0); Triglycerides 47 mg/dL (<150)
[2023-12-29 07:53] LABS: Vitamin D 25-OH Total 28.3 ng/mL (>30)
[2023-12-29 08:20] LABS: Microalbum/Creatinine Ratio Ur 6.2 ug/mg cr (<30)
== END 2023-12-29 05:58 | disposition home or self-care (01) ==
LOC: HO.LAB 05:57
PROVIDERS: PCP Internal Medicine; Visit Provider Internal Medicine
DX: E78.5 Hyperlipidemia, unspecified (principal); E55.9 Vitamin D deficiency, unspecified; E11.9 Type 2 diabetes mellitus without complications
CPT/HCPCS: 36415; 80053; 80061; 82043; 82306; 82570

== ENCOUNTER 2024-01-12 15:56 | Outpatient (REF) | payer OTHER, SELFPAY ==
--- NOTE | ~2024-01-12 | XR_ITS ---
EXAMINATION: XR KNEE, LEFT CLINICAL INFORMATION: M25.562 - Pain in left knee COMPARISON: None available. TECHNIQUE: Three views of the left knee. FINDINGS: Normal bony mineralization. No fracture, dislocation, or focal bony abnormality. Normal alignment. Preserved tricompartmental joint space. No evidence of joint effusion. Normal soft tissues. XR/XR knee LT 3V IMPRESSION: Normal left knee. Electronically signed by: Ash Bruce MD 03/21/2024 11:04 AM APOLINAR
--- NOTE | ~2024-01-12 | XR_ITS ---
EXAMINATION: XR KNEE, RIGHT CLINICAL INFORMATION: M25.561 - Pain in right knee COMPARISON: None available. TECHNIQUE: AP view of the right knee. FINDINGS: Normal mineralization. No fracture, dislocation, or focal bony abnormality. Alignment is anatomic. Joint spaces are maintained. No abnormal soft tissue calcification. Soft tissues normal. XR/XR knee RT 1V IMPRESSION: Normal right knee. Electronically signed by: Ash Bruce MD 03/21/2024 11:03 AM APOLINAR
== END 2024-01-12 15:57 | disposition home or self-care (01) ==
LOC: HO.XRAY 15:56
PROVIDERS: Absent Provider Physician Assistant; PCP Internal Medicine; Visit Provider Internal Medicine
DX: M25.561 Pain in right knee (principal); M25.562 Pain in left knee
CPT/HCPCS: 73560; 73562

== ENCOUNTER → 2024-01-12 15:59 | Outpatient (BNV) | payer OTHER, SELFPAY | PROVIDERS: Absent Provider Physician Assistant; PCP Internal Medicine; Visit Provider Radiology Diagnostic Radiology | DX: M25.562 Pain in left knee (principal); M25.561 Pain in right knee | CPT/HCPCS: 73560; 73562 ==

== ENCOUNTER 2024-01-13 14:37 | Outpatient (AMB) | payer OTHER, SELFPAY ==
--- NOTE | 2024-01-13 15:13 | A.OFFVIS_ITS ---
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 Patient reports her discomfort has been present for awhile, however the past year her pain increases with stair use and at the gym. Occasional pain in her right knee. No previous tx. Her pain is located at the anterior aspect of knee. No numbness or tingling. Denies injury. Finds support with knee wraps and icy hot. 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 She states she has worsening pain at the anterior aspect of her left knee for about 1 year that is aggravated with stair use and at the gym. She r eports her left knee gives out with stair use and she has to turn it a certain way to avoid it. She also hears a cracking sound with lifting and bending her knee. She denies any numbness or tingling. She also experiences occasional knee pain in her right knee. She has not had any knee injury in the past. She finds support with knee wraps and icy hot. ON LICENSE OF [facility] Medical History Severe obesity with body mass index (BMI) of 36.0 to 36.9 with serious comorbidity Dysplasia of cervix, low grade (JAMES 1) Leukopenia Class 1 obesity with body mass index (BMI) of 32.0 to 32.9 in adult Diabetes mellitus Pure hypercholesterolemia Diabetes mellitus type 2 in nonobese Hyperlipemia History of PCOS Surgical History History of hysterectomy, supracervical Hx of section Family History Father Diabetes mellitus Substance use disorder Mother Hypertension Social History Housing: House Alcohol intake: current Alcohol intake frequency: holidays/special occasions only Alcohol type: beer, wine and hard liquor Patient Tobacco Use Status: Never used Tobacco e-Cigarette/Vaping Use: Never Used Second Hand Smoke Exposure: No service: No Current occupational status: employed Current occupational exposures/hazards: No Sexual orientation: Straight/Heterosexual Cognitive needs: No Hearing needs: No Vision needs: No Female Reproductive History Menstrual Age of Menarche: 12 Review of Systems Const All systems reviewed & are unremarkable except as noted in HPI and below Physical Exam Vital Signs: BMI result Body Mass Index 29.4 Const General: cooperative, healthy appearing, comfortable, no acute distress, well developed and alert Orientation/consciousness: patient oriented x3 HEENT Head: Yes normal to inspection, Yes normocephalic and Yes atraumatic Eyes General: appearance normal, both eyes and all related structures Resp Effort & Inspection: normal respiratory effort and able to speak in complete sen tences Cardio Rate: regular rate Peripheral pulses: Peripheral pulses 2+ throughout GI Palpation (GI): Soft to palpation Skin Lesions: no lesions Rashes: no rashes Neuro General: patient oriented x3 Extrem Other: Left knee: Skin intact, no erythema or joint effusion. Lateral retropatellar tenderness present. Full ROM with crepitus. Negative Chalo?s. No ligamentous laxity. NVI. Results Reviewed Results Reviewed: xrays of the left knee obtained 01/12/24 are negative for acute fracture or dislocations Assessment & Plan Assessment & Plan (1) Chondromalacia patellae, left knee: Code(s): M22.42 - Chondromalacia patellae, left knee Category: Medical Plan We discussed options which include PT, NSAIDs and injections. The patient will defer on the injection today and proceed with PT and NSAIDs. She was also given a patellar stabilizing brace in the office today. If symptoms persist, she will contact me for an injection, otherwise, PRN. Orders: Orders XR knee LT 3V 01/12/24 M25.562 - Pain in left knee PT Evaluation and Treatment Today M22.42 - Chondromalacia patellae, left knee XR knee RT 1V 01/12/24 M25.561 - Pain in right knee Patient Instructions: Scribed for Cesar Rodriges PA-C, by Ton Fontaine medical assistant supervisor, on 01/13/2024 at 3:00 PM EST.? I, Cesar Rodriges PA-C, have personally reviewed and agree with the information entered by the scribe. Coding Level of Care Code New Pt Level 3 (22382) Complex EM visit Add On G2211 Diagnoses Chondromalacia patellae, left knee M22.42
[2024-01-13 15:23] VITALS: BMI 29.4
== END 2024-01-13 15:55 | disposition home or self-care (01) ==
PROVIDERS: PCP Internal Medicine; Visit Provider Physician Assistant
DX: M22.42 Chondromalacia patellae, left knee (principal)
CPT/HCPCS: 99203; G2211

== ENCOUNTER → 2024-01-13 14:37 | Outpatient (BNVA) | payer OTHER, SELFPAY | PROVIDERS: PCP Internal Medicine; Visit Provider Physician Assistant | DX: M22.42 Chondromalacia patellae, left knee (principal); M25.561 Pain in right knee | CPT/HCPCS: 99202 ==

== ENCOUNTER 2024-04-06 16:59 | Outpatient (RCR) | payer OTHER, SELFPAY ==
--- NOTE | 2024-02-07 13:03 | MHC.PT.EP ---
[facility] [place] Office [place] Office [place] Office [address] [phone] F: [phone] F: [phone] F: [phone] F: [phone] Physical Therapy Plan of Care Date of Evaluation: 02/07/24 Date of Surgery: Diagnosis: LEFT CHONDROMALACIA PATELLA Assessment: 38 YO FEMALE REF TO PT FOR Lt CHONDROMALACIA PATELLA- PROGRESSIVE OVER THE PAST FEW MONTHS-SHE HAS BEEN IB=NCR HER FITNESS/ GYM WORKOUTS AND HAS HAD WEIGHT LOSS. OBJECTIVELY SHE HAS STRENGTH DEFICTS IN HER PROX LEs/ LUMBOPELVIC REGION, (+) LATERAL RETINAC TIGHTNESS AND DRIFT, GENU VALGUS TENDENCIES, (+) CREPITUS, AND PAIN IN Lt > Rt KNEE. FUNCTIONALLY, SHE IS LIMITED W WT BEARING TASKS/ STAIRS/ SQUATS.. 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 SHE WOULD BENEFIT FROM PT AND AGREES W PT POC TO ADDRESS THE ABOVE FINDINGS. 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 Manual therapy to restore motion and function. Therapeutic exercise to improve strength and flexibility. Neuromuscular re-education for posture and balance. Therapeutic activities to return to functional activities of daily living. Electronically signed by: KAYLA LAYTON,PT Please sign and return to therapist. Thank you for your referral.
--- NOTE | 2024-04-07 07:20 | MHC.PT.DC ---
[facility] [place] Office [place] Office [place] Office [address] Neal Miller [address] [phone] F: [phone] F: [phone] F: [phone] F: [phone] Physical Therapy Discharge Report Diagnosis: LEFT CHONDROMALACIA PATELLA Date of Surgery: Date of Evaluation: 02/07/24 Date of Discharge: 04/07/24 Treatments to Date: 8 Cancellations to Date: 0 No Shows to Date: 0 Discharge Status: Achieved Goals Improved Function Independent with HEP Discharge Summary: ROXANN PROGRESSED WELL IN PT- SHE MET HER PT GOALS, ESPEC IMPROVED FUNCT MOBILITY TOLERANCE AND RELATIVELY RESOLVED Lt PF PAIN. SHE IS INDEP W HER PROGRESSIVE HEP AND IS READY FOR D/C AT THIS TIME. HER LEFI AT D/C IS 72/80, AND, AT EVAL IT WAS 63/80. ALL GOALS MET Electronically signed by: KAYLA LAYTON,PT Please sign and return to therapist. Thank you for your referral.
== END 2024-04-07 07:24 | disposition home or self-care (01) ==
LOC: HO.PT 16:59
PROVIDERS: PCP Internal Medicine; Visit Provider Physician Assistant
DX: M22.42 Chondromalacia patellae, left knee (principal)
CPT/HCPCS: 97110; 97140; 97161; 97530

== ENCOUNTER 2024-04-21 09:15 | Outpatient (REF) | payer OTHER, SELFPAY ==
[2024-04-21 10:08] LABS: Alanine Aminotransferase 42 U/L (0-31); Albumin Level 3.8 g/dL (3.5-5.0); Alkaline Phosphatase 40 U/L (39-117); Anion Gap 8 (12-20); Aspartate Amino Transferase 22 U/L (5-31); Bilirubin Total 0.5 mg/dL (0.0-1.0); Blood Urea Nitrogen 15 mg/dL (9-16); Calcium 8.4 mg/dL (8.4-10.2); Carbon Dioxide 23 mmol/L (22-29); Chloride 111 mmol/L (96-108); Cholesterol 197 mg/dL (<200); Estimated Glomerular Filt Rate > 60; Glucose Fasting 90 mg/dL (60-99); HDL Cholesterol 50 mg/dL (>40); LDL Cholesterol Calculated 138 mg/dL (<100); Potassium 3.9 mmol/L (3.3-5.1); Sodium 138 mmol/L (135-145); Total Protein 6.5 g/dL (6.5-8.0); Triglycerides 46 mg/dL (<150)
[2024-04-21 10:24] LABS: Vitamin D 25-OH Total 29.8 ng/mL (>30)
[2024-04-21 11:04] LABS: Creatinine Urine 137.92 mg/dL; Microalbum/Creatinine Ratio Ur 6.5 ug/mg cr (<30)
== END 2024-04-21 09:16 | disposition home or self-care (01) ==
LOC: HO.LAB 09:15
PROVIDERS: PCP Internal Medicine; Visit Provider Internal Medicine
DX: E78.5 Hyperlipidemia, unspecified (principal); E11.9 Type 2 diabetes mellitus without complications; E55.9 Vitamin D deficiency, unspecified
CPT/HCPCS: 36415; 80053; 80061; 82043; 82306; 82570

== ENCOUNTER 2024-04-24 16:10 | Outpatient (AMB) | payer OTHER, SELFPAY ==
[2024-04-24 16:25] VITALS: BP 110/68; PULSE 87; O2SAT 97; BMI 28.1
--- NOTE | 2024-04-24 16:25 | A.OFFPC_ITS ---
Vital Signs 04/24/24 16:25 Height 5 ft 1.5 in Weight 151 lb 4 oz BMI 28.1 BP 110/68 Blood Pressure Location Lt brachial Position Sitting Pulse 87 Pulse Source Pulse Oximeter Pulse Oximetry (%) 97 Oxygen Delivery Method Room Air Intake Visit Reasons: 4 Month F/U Juvenile Court Liaison Required: No Accompanied by: Self / Same As Patient Allergies sulfamethoxazole [Bactrim] Allergy (Intermediate, Verified 04/24/24 16:41) hives trimethoprim [Bactrim] Allergy (Intermediate, Verified 04/24/24 16:41) hives metformin Adverse Reaction (Intermediate, Verified 04/24/24 16:41) diarrhea Medication List - Last Reconciled 04/24/24 by Amy Aviles MD atorvastatin 40 mg PO BEDTIME 90 days blood sugar diagnostic As directed semaglutide (Ozempic) 2 mg (0.75 mL) subcut QWEEK 4 weeks sumatriptan succinate 25 mg PO Q2-4H PRN 30 days Tobacco use date assessed: 04/24/24 Dental Screening Dental Screen Date: 04/24/24 Did you have a dental visit in the last 12 months?: Yes Did you have a dental problem in the last 6 months where you did not have access to dental care?: No Was dental information given to patient?: Patient has dentist HPI HPI Comments History of Present Illness Details The patient is a 38-year-old female presenting with concerns regarding blood sugar control and blood pressure management. She reported a history of elevated A1c levels which indicates good glycemic control, and she expressed an interest to address this issue during the visit. Blood pressure well controlled with low-dose lisinopril. Her LDL is not on goal and I will increase atorvastatin from 40 mg to 80 mg. [facility] Medical History Severe obesity with body mass index (BMI) of 36.0 to 36.9 with serious comorbidity Dysplasia of cervix, low grade (JAMES 1) Leukopenia Class 1 obesity with body mass index (BMI) of 32.0 to 32.9 in adult Diabetes mellitus Pure hypercholesterolemia Diabetes mellitus type 2 in nonobese Hyperlipemia History of PCOS Surgical History History of hysterectomy, supracervical Hx of section Family History Father Diabetes mellitus Substance use disorder Mother Hypertension Social History Housing: House Alcohol intake: current Alcohol intake frequency: holidays/special occasions only Alcohol type: beer, wine and hard liquor Patient Tobacco Use Status: Never used Tobacco e-Cigarette/Vaping Use: Never Used Second Hand Smoke Exposure: No service: No Current occupational status: employed Current occupational exposures/hazards: No Sexual orientation: Straight/Heterosexual Cognitive needs: No Hearing needs: No Vision needs: No Female Reproductive History Menstrual Age of Menarche: 12 Questionnaire PHQ-9 Over the last 2 weeks, how often have you been bothered by any of the following problems? 1. Little interest or pleasure in doing things: not at all 2. Feeling down, depressed, or hopeless: not at all 3. Trouble falling or staying asleep, or sleeping too much: not at all 4. Feeling tired or having little energy: not at all 5. Poor appetite or overeating: not at all 6. Feeling bad about yourself - or that you are a failure or have let yourself or your family down: not at all 7. Trouble concentrating on things, such as reading the newspaper or watching television: not at all 8. Moving or speaking so slowly that other people could have noticed. Or the opposite - being so fidgety or restless that you have been moving around a lot more than usual: not at all 9. Thoughts that you would be better off or of hurting yourself in some way: not at all Total score: 0 Depression Screening Interpretation: Negative Depression Screening Done: Yes 64735 - PHQ-9 Billing: Yes Source: Developed by Drs. Pablo Harper, Tomasa William, Eliazar Sher and colleagues, with an educational carlos from [employer]. Thrive Questionnaire Date Thrive assessed: 04/24/24 I am a: Patient What is your living situation today?: I have a steady place to live Within the past 12 months, did the food you bought not last and you didn't have the money to get more?: Never true Within the past 12 months, did you worry whether your food would run out before you got money to buy more?: Never true Do you have trouble paying for medicines?: No Do you have trouble getting transportation to medical appointments?: No Do you have trouble paying your heating and electricity bill?: No Do you have trouble taking care of your child, family member or friend?: No Do you have trouble with day-to-day activities such as bathing, preparing meals, shopping, managing finances, etc.?: No Are you currently unemployed and looking for a job?: No Are you interested in more education?: No Please select the resources that you would like help with: None Currently or been in a relationship where the following occur: No concerns reported THRIVE Score: 0 AUDIT C Alcohol Use Questionnaire (AUDIT-C) 1. How often do you have a drink containing alcohol?: Monthly or less 2. How many drinks containing alcohol do you have on a typical day when you are drinking?: 1 or 2 3. How often do you have six or more drinks on one occasion?: Never Total Score: 1 Score Reviewed/Action Taken: No CHAITANYA-7 AMB Questionnaire CHAITANYA-7 Date CHAITANYA - 7 assessed: 04/24/24 Feeling nervous, anxious, or on edge: 0 = Not at all Not being able to stop or control worryin = Not at all Worrying too much about different things: 0 = Not at all Trouble relaxin = Not at all Being so restless that it is hard to sit still: 0 = Not at all Becoming easily annoyed or irritable: 0 = Not at all Feeling afraid as if something awful might happen: 0 = Not at all Total CHAITANYA-7 score (0-4 normal; 5-9 mild; 10-14 moderate; 15-21 severe): 0 Source: Developed by Drs. Pablo Harper, Tomasa William, Eliazar Sher and colleagues, with an educational carlos from [employer]. CHAITANYA-7 Assessment Billing CHAITANYA-7 Assessment Tool: CHAITANYA-7 Assessment 92322 Review of Systems Const All systems reviewed & are unremarkable except as noted in HPI and below Card Denies chest pain at rest, Denies chest pain with activity, Denies edema, Denies irregular heart rhythm, Denies claudication, Denies dyspnea, Denies dyspnea on exertion, Denies orthopnea, Denies paroxysmal nocturnal dyspnea and Denies slow heart rate Resp Denies cough, Denies dyspnea and Denies dyspnea on exertion GI Denies abdominal pain, Denies change in bowel habits, Denies excessive flatus, Denies nausea and Denies vomiting Denies urinary incontinence, Denies urinary hesitancy and Denies urinary urgency Neuro Denies behavioral changes and Denies lack of coordination Psych Denies behavioral changes Physical exam (Primary Care) Vital Signs: Last Vital Signs Pulse 87 04/24/24 16:25 BP 110/68 04/24/24 16:25 Pulse Ox 97 04/24/24 16:25 Oxygen Delivery Method Room Air 04/24/24 16:25 BMI result Body Mass Index 28.1 Tobacco/Smoking Status: Tobacco use Status Tobacco use date assessed 04/24/24 04/24/24 16:38 Patient Tobacco Use Status Never used Tobacco 04/24/24 16:26 e-Cigarette/Vaping Use Never Used 04/24/24 16:26 PHQ-9: PHQ-9 Score PHQ-9: Total score 0 04/24/24 16:50 Depression Screening Interpretation: Negative Thrive Assessment: Date of Thrive Assessment Date Thrive assessed 04/24/24 04/24/24 16:38 Currently or been in a relationship where the following occur: No concerns reported Resp Effort & Inspection: normal respiratory effort Auscultation: clear to auscultation bilaterally Cardio Jugular venous distension: no JVD Rate: regular rate Rhythm: regular rhythm Heart sounds: S1 normal heart sound present and S2 normal heart sound present Extrem General: Yes full ROM Results AMB Hemoglobin A1c AMB Hemoglobin A1c 5.1 % Last Edit by HAMILTON Dueñas on 04/24/24 16:59 Results Reviewed Results Reviewed: Laboratory Last Values Hgb A1c (Clinic) 5.1 % (4.0-6.0) 04/24/24 16:49 Coding Level of Care Code Est Pt Level 3 (15394) Complex EM visit Add On G2211 Diagnoses Type 2 diabetes mellitus without complication, without long-term current use of insulin E11.9 Diabetes mellitus type: type 2 Diabetes mellitus intermodal dispatcher insulin use: without intermodal dispatcher use Diabetes mellitus complication status: without complication Hyperlipidemia LDL goal <70 E78.5 Hypovitaminosis D E55.9 Additional Codes CHAITANYA-7 Assessment Billing - CHAITANYA-7 Assessment Tool: CHAITANYA-7 Assessment 27329 ([id number]) PHQ-9 - 47246 - PHQ-9 Billing: Yes ([id number]) Time Spent (min) 23 Assessment & Plan Assessment & Plan (1) Diabetes mellitus: Code(s): E11.9 - Type 2 diabetes mellitus without complications Category: Medical Qualifiers: Diabetes mellitus type: type 2 Diabetes mellitus intermodal dispatcher insulin use: without prison use Diabetes mellitus complication status: without complication Qualified Code(s): E11.9 - Type 2 diabetes mellitus without complications (2) Hyperlipidemia LDL goal <70: Code(s): E78.5 - Hyperlipidemia, unspecified Category: Medical (3) Hypovitaminosis D: Code(s): E55.9 - Vitamin D deficiency, unspecified Category: Medical Plan Continue same medications for diabetes. Do diabetic exam yearly. Increase atorvastatin to reach LDL goal less than 70. Orders: Orders Lipid Panel 4 Months E78.5 - Hyperlipidemia, unspecified Microalbumin, Random (w Creat) 4 Months R80.9 - Proteinuria, unspecified Vitamin D 25-OH Total 4 Months E55.9 - Vitamin D deficiency, unspecified Comprehensive [place]. Panel Fast 4 Months E78.5 - Hyperlipidemia, unspecified AMB Hemoglobin A1c Today E11.9 - Type 2 diabetes mellitus without complications Medications: New atorvastatin 80 mg PO BEDTIME 90 tabs 1RF 90 days Discontinued atorvastatin Discontinued Reason: Patient Completed Course 40 mg PO BEDTIME 90 days 90 tabs 1RF E78.5 - Hyperlipidemia, unspecified
== END 2024-04-24 16:49 | disposition home or self-care (01) ==
PROVIDERS: PCP Internal Medicine; Visit Provider Internal Medicine
DX: E11.9 Type 2 diabetes mellitus without complications (principal); E78.5 Hyperlipidemia, unspecified; E55.9 Vitamin D deficiency, unspecified

== ENCOUNTER → 2024-04-24 16:10 | Outpatient (BNVA) | payer OTHER, SELFPAY | PROVIDERS: PCP Internal Medicine; Visit Provider Internal Medicine | DX: E11.9 Type 2 diabetes mellitus without complications (principal); E78.5 Hyperlipidemia, unspecified; E55.9 Vitamin D deficiency, unspecified; R80.9 Proteinuria, unspecified | CPT/HCPCS: 83036; 96127; 99212 ==

== ENCOUNTER 2024-08-15 06:09 | Outpatient (REF) | payer OTHER, SELFPAY ==
[2024-08-15 07:54] LABS: Alanine Aminotransferase 75 U/L (0-31); Albumin Level 4.1 g/dL (3.5-5.0); Alkaline Phosphatase 49 U/L (39-117); Anion Gap 10 (12-20); Aspartate Amino Transferase 105 U/L (5-31); Bilirubin Total 0.9 mg/dL (0.0-1.0); Blood Urea Nitrogen 17 mg/dL (9-16); Calcium 8.8 mg/dL (8.4-10.2); Carbon Dioxide 24 mmol/L (22-29); Chloride 106 mmol/L (96-108); Cholesterol 174 mg/dL (<200); Estimated Glomerular Filt Rate > 60; Glucose Fasting 91 mg/dL (60-99); HDL Cholesterol 53 mg/dL (>40); LDL Cholesterol Calculated 109 mg/dL (<100); Sodium 136 mmol/L (135-145); Triglycerides 60 mg/dL (<150)
[2024-08-15 08:13] LABS: Vitamin D 25-OH Total 27.1 ng/mL (>30)
[2024-08-15 09:15] LABS: Creatinine Urine 248.51 mg/dL; Microalbum/Creatinine Ratio Ur 5.2 ug/mg cr (<30)
== END 2024-08-15 06:10 | disposition home or self-care (01) ==
LOC: HO.LAB 06:09
PROVIDERS: PCP Internal Medicine; Visit Provider Internal Medicine
DX: E55.9 Vitamin D deficiency, unspecified (principal); E78.5 Hyperlipidemia, unspecified; R80.9 Proteinuria, unspecified
CPT/HCPCS: 36415; 80053; 80061; 82043; 82306; 82570

== ENCOUNTER 2024-08-17 09:17 | Outpatient (AMB) | payer OTHER, SELFPAY ==
[2024-08-17 09:34] VITALS: BP 110/70; BMI 27.9
--- NOTE | 2024-08-17 09:34 | A.OFFPC_ITS ---
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 Accompanied by: Self / Same As Patient Allergies sulfamethoxazole [Bactrim] Allergy (Intermediate, Verified 08/17/24 09:59) hives trimethoprim [Bactrim] Allergy (Intermediate, Verified 08/17/24 09:59) hives metformin Adverse Reaction (Intermediate, Verified 08/17/24 09:59) diarrhea Medication List - Last Reconciled 08/17/24 by Amy Aviles MD atorvastatin 80 mg PO BEDTIME 90 days blood sugar diagnostic As directed semaglutide (Ozempic) 2 mg (0.75 mL) subcut QWEEK 4 weeks Tobacco use date assessed: 04/24/24 Dental Screening Dental Screen Date: 04/24/24 HPI HPI Comments History of Present Illness Details The patient is a 39-year-old female presenting with concerns regarding elevated cholesterol and liver enzymes, as well as episodes of dizziness. The history of elevated cholesterol was initially identified and atorvastatin 80 mg at bedtime was prescribed but patient admits not being compliant with atorvastatin. The liver enzymes have recently shown a slight increase, which is being monitored. The current elevation could potentially be attributed to fatty liver disease or as a side effect of the atorvastatin medication. The patient's A1c is documented as 5.3, which was compared with previous results that indicated the A1c was 5.1 in April. Her blood sugar level is currently 91, and her blood pressure is reported as good. The patient reports feeling generally well, though mentions feeling slightly tired. There is no mention of chest pain or shortness of breath, and her kidney function appears to be within normal limits. Vitamin-D will be supplemented. She reports frequent episodes of dizziness and feeling light-headed or dizzy, which might be associated with overexertion during workouts or possible dehydration. Her LDL level is recorded as 109, with the target being 70. [facility] Medical History (Updated 08/17/24 @ 10:10 by Amy Aviles MD) Severe obesity with body mass index (BMI) of 36.0 to 36.9 with serious comorbidity Dysplasia of cervix, low grade (JAMES 1) Leukopenia Class 1 obesity with body mass index (BMI) of 32.0 to 32.9 in adult Diabetes mellitus Pure hypercholesterolemia Diabetes mellitus type 2 in nonobese Hyperlipemia History of PCOS Surgical History History of hysterectomy, supracervical Hx of section Family History Father Diabetes mellitus Substance use disorder Mother Hypertension Social History Housing: House Alcohol intake: current Alcohol intake frequency: holidays/special occasions only Alcohol type: beer, wine and hard liquor Patient Tobacco Use Status: Never used Tobacco e-Cigarette/Vaping Use: Never Used Second Hand Smoke Exposure: No service: No Current occupational status: employed Current occupational exposures/hazards: No Sexual orientation: Straight/Heterosexual Cognitive needs: No Hearing needs: No Vision needs: No Female Reproductive History Menstrual Age of Menarche: 12 Questionnaire PHQ-9 Over the last 2 weeks, how often have you been bothered by any of the following problems? 1. Little interest or pleasure in doing things: not at all 2. Feeling down, depressed, or hopeless: not at all 3. Trouble falling or staying asleep, or sleeping too much: not at all 4. Feeling tired or having little energy: not at all 5. Poor appetite or overeating: not at all 6. Feeling bad about yourself - or that you are a failure or have let yourself or your family down: not at all 7. Trouble concentrating on things, such as reading the newspaper or watching television: not at all 8. Moving or speaking so slowly that other people could have noticed. Or the opposite - being so fidgety or restless that you have been moving around a lot more than usual: not at all 9. Thoughts that you would be better off or of hurting yourself in some way: not at all Total score: 0 Depression Screening Interpretation: Negative Depression Screening Done: Yes 85761 - PHQ-9 Billing: Yes Source: Developed by Drs. Pablo Harper, Tomasa William, Eliazar Sher and colleagues, with an educational carlos from [employer]. Thrive Questionnaire Date Thrive assessed: 04/24/24 I am a: Patient What is your living situation today?: I have a steady place to live Within the past 12 months, did the food you bought not last and you didn't have the money to get more?: Never true Within the past 12 months, did you worry whether your food would run out before you got money to buy more?: Never true Do you have trouble paying for medicines?: No Do you have trouble getting transportation to medical appointments?: No Do you have trouble paying your heating and electricity bill?: No Do you have trouble taking care of your child, family member or friend?: No Do you have trouble with day-to-day activities such as bathing, preparing meals, shopping, managing finances, etc.?: No Are you currently unemployed and looking for a job?: No Are you interested in more education?: No Please select the resources that you would like help with: None Currently or been in a relationship where the following occur: No concerns reported THRIVE Score: 0 AUDIT C Alcohol Use Questionnaire (AUDIT-C) 1. How often do you have a drink containing alcohol?: Monthly or less 2. How many drinks containing alcohol do you have on a typical day when you are drinking?: 1 or 2 3. How often do you have six or more drinks on one occasion?: Never Total Score: 1 Score Reviewed/Action Taken: No CHAITANYA-7 AMB Questionnaire CHAITANYA-7 Date CHAITANYA - 7 assessed: 04/24/24 Feeling nervous, anxious, or on edge: 0 = Not at all Not being able to stop or control worryin = Not at all Worrying too much about different things: 0 = Not at all Trouble relaxin = Not at all Being so restless that it is hard to sit still: 0 = Not at all Becoming easily annoyed or irritable: 0 = Not at all Feeling afraid as if something awful might happen: 0 = Not at all Total CHAITANYA-7 score (0-4 normal; 5-9 mild; 10-14 moderate; 15-21 severe): 0 Source: Developed by Drs. Pablo Harper, Tomasa William, Eliazar Sher and colleagues, with an educational carlos from [employer]. CHAITANYA-7 Assessment Billing CHAITANYA-7 Assessment Tool: CHAITANYA-7 Assessment 56560 Review of Systems Const All systems reviewed & are unremarkable except as noted in HPI and below Card Denies chest pain at rest, Denies chest pain with activity, Denies edema, Denies irregular heart rhythm, Denies claudication, Denies dyspnea, Denies dyspnea on exertion, Denies orthopnea, Denies paroxysmal nocturnal dyspnea and Denies slow heart rate Resp Denies cough, Denies dyspnea and Denies dyspnea on exertion GI Denies abdominal pain, Denies change in bowel habits, Denies excessive flatus, Denies nausea and Denies vomiting Physical exam (Primary Care) Vital Signs: Last Vital Signs BP 110/70 08/17/24 09:34 BMI result Body Mass Index 27.9 Tobacco/Smoking Status: Tobacco use Status Tobacco use date assessed 04/24/24 08/17/24 09:37 Patient Tobacco Use Status Never used Tobacco 08/17/24 09:37 e-Cigarette/Vaping Use Never Used 08/17/24 09:37 PHQ-9: PHQ-9 Score PHQ-9: Total score 0 08/17/24 09:57 Depression Screening Interpretation: Negative Thrive Assessment: Date of Thrive Assessment Date Thrive assessed 04/24/24 08/17/24 09:37 Currently or been in a relationship where the following occur: No concerns reported Resp Effort & Inspection: normal respiratory effort Auscultation: clear to auscultation bilaterally Cardio Jugular venous distension: no JVD Rate: regular rate Rhythm: regular rhythm Heart sounds: S1 normal heart sound present and S2 normal heart sound present Extrem General: Yes full ROM Results AMB Hemoglobin A1c AMB Hemoglobin A1c 5.3 % Last Edit by ZACKERY Carreon on 08/17/24 09:4 2 Results Reviewed Results Reviewed: Laboratory Last Values Hgb A1c (Clinic) 5.3 % (4.0-6.0) 08/17/24 09:31 Coding Level of Care Code Est Pt Level 4 (24049) Complex EM visit Add On G2211 Diagnoses Transaminitis R74.01 Hypovitaminosis D E55.9 Hyperlipidemia LDL goal <70 E78.5 Type 2 diabetes mellitus without complication, without long-term current use of insulin E11.9 Diabetes mellitus type: type 2 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: without residential use Diabetes mellitus complication status: without complication Additional Codes PHQ-9 - 17796 - PHQ-9 Billing: Yes ([id number]) CHAITANYA-7 Assessment Billing - CHAITANYA-7 Assessment Tool: CHAITANYA-7 Assessment [id number] ([id number]) Time Spent (min) 22 Assessment & Plan Assessment & Plan (1) Transaminitis: Code(s): R74.01 - Elevation of levels of liver transaminase levels Category: Medical (2) Hypovitaminosis D: Code(s): E55.9 - Vitamin D deficiency, unspecified Category: Medical (3) Hyperlipidemia LDL goal <70: Code(s): E78.5 - Hyperlipidemia, unspecified Category: Medical (4) Diabetes mellitus: Code(s): E11.9 - Type 2 diabetes mellitus without complications Category: Medical Qualifiers: Diabetes mellitus type: type 2 Diabetes mellitus residential insulin use: without exterminator termite use Diabetes mellitus complication status: without complication Qualified Code(s): E11.9 - Type 2 diabetes mellitus without complications Plan We will focus on monitoring and managing the patient?s elevated cholesterol and liver enzymes. The atorvastatin regimen should be continued, and lifestyle changes such as regular exercise and balanced nutritional intake should be reinforced. The patient will also undergo a liver ultrasound and a hepatitis panel to investigate the cause of elevated liver enzymes potentially linked to fatty liver. Dizziness and light-headedness should be monitored and might be mitigated by ensuring proper hydration and moderate exercise. A follow-up evaluation is to be scheduled for repeat liver function tests in one month, with consideration of referral to gastroenterology should liver enzyme levels not improve. Patient was informed and verbally consented to the use of an ambient scribe for clinic note documentation during this visit. I reviewed with the patient the significance of maintaining control over both cholesterol and liver enzyme levels. The rationale for ordering a liver ultrasound and hepatitis panel was explained, including the discussion that elevated liver enzymes could indicate issues with fatty liver or side effects from atorvastatin, necessitating further diagnostic evaluation. We discussed that her regular exercise is beneficial but should be monitored to prevent over- exertion which may contribute to her dizziness. The improvement of hydration was underlined as a potential solution for her light-headedness. I emphasized the importance of follow-up testing to monitor these conditions, informing her of the plan to revisit liver enzyme levels in a month and potentially consulting gastroenterology if needed. Orders: Orders AMB Hemoglobin A1c Today E11.9 - Type 2 diabetes mellitus without complications US abdomen comp w elastography Today R74.01 - Elevation of levels of liver transaminase levels Lipid Panel 4 Months E78.5 - Hyperlipidemia, unspecified Comprehensive [place]. Panel Fast 4 Months E11.9 - Type 2 diabetes mellitus without complications Liver Panel 4 Weeks R74.01 - Elevation of levels of liver transaminase levels Microalbumin, Random (w Creat) 4 Months R80.9 - Proteinuria, unspecified Vitamin D 25-OH Total 4 Months E55.9 - Vitamin D deficiency, unspecified Hepatitis A,B,C Profile Today R74.01 - Elevation of levels of liver transaminase levels Medications: New cholecalciferol (vitamin D3) 50 mcg PO DAILY 90 days 90 caps 1RF Refilled atorvastatin 80 mg PO BEDTIME 90 days 90 tabs 1RF Patient Instructions: - Continue taking atorvastatin 80 mg at bedtime as prescribed. - Ensure adequate hydration, aim for balanced fluid intake throughout the day. - Moderate exercise to prevent overexertion which might contribute to dizziness. - Await scheduling for a liver ultrasound and hepatitis panel as prescribed. - Return in one month for follow-up lab work on liver enzyme levels. - Monitor any new or worsening symptoms and seek care sooner if needed.
== END 2024-08-17 10:11 | disposition home or self-care (01) ==
LOC: HO.HMCH 09:18
PROVIDERS: PCP Internal Medicine; Visit Provider Internal Medicine
DX: R74.01 Elevation of levels of liver transaminase levels (principal); E55.9 Vitamin D deficiency, unspecified; E78.5 Hyperlipidemia, unspecified; E11.9 Type 2 diabetes mellitus without complications

== ENCOUNTER → 2024-08-17 09:17 | Outpatient (BNVA) | payer OTHER, SELFPAY | PROVIDERS: PCP Internal Medicine; Visit Provider Internal Medicine | DX: Z00.00 Encounter for general adult medical examination without abnormal findings (principal); E78.00 Pure hypercholesterolemia, unspecified; R74.01 Elevation of levels of liver transaminase levels; E55.9 Vitamin D deficiency, unspecified; E78.5 Hyperlipidemia, unspecified; E11.9 Type 2 diabetes mellitus without complications; R80.9 Proteinuria, unspecified | CPT/HCPCS: 83036; 96127; 99212 ==

== ENCOUNTER 2024-11-02 08:15 | Outpatient (REF) | payer OTHER, SELFPAY ==
--- NOTE | ~2024-11-02 | US_ITS ---
EXAMINATION: US ABDOMEN COMPLETE WITH LIVER ELASTOGRAPHY HISTORY: R74.01 - Elevation of levels of liver transaminase levels TECHNIQUE: Real-time grayscale ultrasound imaging of the abdomen was performed and images were reviewed. COMPARISON: There are no prior studies available for comparison. FINDINGS: Liver: The right lobe of the liver measures 15.2 cm in size. The left lobe of the liver measures 11.6 cm in size. The liver demonstrates normal homogeneous echotexture. No focal mass or intrahepatic biliary ductal dilatation is identified. There is normal hepatopedal flow in the portal vein. Ultrasound elastography of the liver was performed with 10 separate measurements of the liver parenchyma with the patient in the supine position. Measurements were obtained approximately 2 cm below George's capsule and perpendicular to the capsule. The median shear wave velocity is 1.71 m/s. The interquartile range/median (IQR/median) is 0.08. Gallbladder and biliary tree: The gallbladder is unremarkable, without evidence of calculi, wall thickening, or pericholecystic fluid. There is no sonographic Friedman sign. The common bile duct is normal in caliber measuring 3 mm. Kidneys: The right kidney measures 11.2 cm in length. The left kidney measures 11.3 cm in length and demonstrates a probable extrarenal pelvis. The kidneys are unremarkable, without evidence of masses, hydronephrosis, or calculi. Pancreas: The pancreatic head, neck, and body are unremarkable. The pancreatic tail is obscured by bowel gas. Spleen: The spleen is normal in size and contour, measuring 9.0 cm in length. Abdominal aorta and inferior vena cava: The visualized portions of the abdominal aorta and inferior vena cava are normal in caliber. There is no free fluid in the abdomen. US/US abdomen comp w elastography IMPRESSION: Unremarkable abdominal ultrasound. The median shear wave velocity in the liver is 1.71 m/s, corresponding to a median liver stiffness of 8.84 kPa. The IQR/median value is 0.08. This is indicative of a quality data set. Findings are indicative of a high elastography value suggestive of compensated advanced chronic liver disease. REFERENCE: Society of Radiologists in Ultrasound Liver Stiffness Thresholds (2020): LIVER STIFFNESS THRESHOLDS: *Shear wave velocity less than 1.3 m/s (Liver Stiffness equal or less than 5 kPa): High probability of being normal. *Shear wave velocity less than 1.7 m/s (Liver Stiffness less than 9 kPa): In the absence of other known clinical signs, rules out compensated advanced chronic liver disease. *Shear wave velocity between 1.7-2.1 m/s (Liver Stiffness 9-13 kPa): Suggestive of compensated advanced chronic liver disease but need further test for confirmation. *Shear wave velocity between 2.1-2.4 m/s (Liver Stiffness 13-17 kPa): Rules in compensated advanced chronic liver disease. *Shear wave velocity greater than 2.4 m/s (Liver Stiffness over 17 kPa): Suggestive of clinically significant portal hypertension. QUALITY OF DATA SET: *IQR/Median value equal or less than 0.15 implies a quality data set. *IQR/Median value over 0.15 implies a poor quality data set. SIGNIFICANT CHANGE FROM PRIOR EXAM: Significant change if liver stiffness measurement is 10% or greater from prior exam. OTHER CONSIDERATIONS: The stage of liver fibrosis may be overestimated in the setting of acute hepatitis, liver inflammation, elevated liver function tests, hepatic vascular congestion, obstructive cholestasis, non-fasting state, and infiltrative diseases such as amyloidosis and lymphoma. In some patients with NAFLD, the liver stiffness thresholds for compensated advanced chronic liver disease may be lower. In causes other than viral hepatitis and NAFLD, liver stiffness thresholds are not well established. Electronically signed by: Pablo Breaux MD 11/02/2024 09:20 AM EDT
== END 2024-11-02 08:16 | disposition home or self-care (01) ==
LOC: HO.US 08:15
PROVIDERS: PCP Internal Medicine; Visit Provider Internal Medicine
DX: R74.01 Elevation of levels of liver transaminase levels (principal)
CPT/HCPCS: 76700; 76981

== ENCOUNTER → 2024-11-02 08:16 | Outpatient (BNV) | payer OTHER, SELFPAY | PROVIDERS: PCP Internal Medicine; Visit Provider Radiology Diagnostic Radiology | DX: R74.01 Elevation of levels of liver transaminase levels (principal) | CPT/HCPCS: 76700 ==

== ENCOUNTER 2025-01-04 16:17 | Outpatient (AMB) | payer OTHER, SELFPAY ==
--- NOTE | 2025-01-04 16:18 | MHC.PC.OV ---
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 Accompanied by: Self / Same As Patient Allergies sulfamethoxazole (Bactrim) Allergy (Intermediate, Verified 01/04/25 16:36) hives trimethoprim (Bactrim) Allergy (Intermediate, Verified 01/04/25 16:36) hives glipizide Adverse Reaction (Intermediate, Verified 01/04/25 16:48) hypoglycemia metformin Adverse Reaction (Intermediate, Verified 01/04/25 16:36) diarrhea sitagliptin (From Januvia) Adverse Reaction (Intermediate, Verified 01/04/25 16:48) Abdominal Pain Medication List - Last Reconciled 01/04/25 by Amy Aviles MD atorvastatin 80 mg PO BEDTIME 90 days blood sugar diagnostic As directed cholecalciferol (vitamin D3) 50 mcg PO DAILY 90 days glipizide 10 mg PO DAILY 90 days semaglutide (Rybelsus) 3 mg PO DAILY 30 days semaglutide (Rybelsus) 7 mg PO DAILY 30 days semaglutide (Ozempic) 2 mg (0.75 mL) subcut QWEEK 4 weeks sitagliptin phosphate (Januvia) 25 mg PO DAILY 90 days tirzepatide (Mounjaro) 2.5 mg (0.5 mL) subcut QWEEK 4 weeks Tobacco use date assessed: 01/04/25 Dental Screening Dental Screen Date: 01/04/25 Did you have a dental visit in the last 12 months?: No Did you have a dental problem in the last 6 months where you did not have access to dental care?: No Was dental information given to patient?: No [facility] Medical History Severe obesity with body mass index (BMI) of 36.0 to 36.9 with serious comorbidity Dysplasia of cervix, low grade (JAMES 1) Leukopenia Class 1 obesity with body mass index (BMI) of 32.0 to 32.9 in adult Diabetes mellitus Pure hypercholesterolemia Diabetes mellitus type 2 in nonobese Hyperlipemia History of PCOS Surgical History History of hysterectomy, supracervical Hx of section Family History Father Diabetes mellitus Substance use disorder Mother Hypertension Social History Housing: House Alcohol intake: current Alcohol intake frequency: holidays/special occasions only Alcohol type: beer, wine and hard liquor Patient Tobacco Use Status: Never used Tobacco e-Cigarette/Vaping Use: Never Used Second Hand Smoke Exposure: No service: No Current occupational status: employed Current occupational exposures/hazards: No Sexual orientation: Straight/Heterosexual Cognitive needs: No Hearing needs: No Vision needs: No Female Reproductive History Menstrual Age of Menarche: 12 Questionnaire Thrive Questionnaire Date Thrive assessed: 08/17/24 I am a: Patient What is your living situation today?: I have a steady place to live Within the past 12 months, did the food you bought not last and you didn't have the money to get more?: Never true Within the past 12 months, did you worry whether your food would run out before you got money to buy more?: Never true Do you have trouble paying for medicines?: No Do you have trouble getting transportation to medical appointments?: No Do you have trouble paying your heating and electricity bill?: No Do you have trouble taking care of your child, family member or friend?: No Do you have trouble with day-to-day activities such as bathing, preparing meals, shopping, managing finances, etc.?: No Are you currently unemployed and looking for a job?: No Are you interested in more education?: No Please select the resources that you would like help with: None Currently or been in a relationship where the following occur: No concerns reported THRIVE Score: 0 AUDIT C Alcohol Use Questionnaire (AUDIT-C) 1. How often do you have a drink containing alcohol?: Monthly or less 2. How many drinks containing alcohol do you have on a typical day when you are drinking?: 1 or 2 3. How often do you have six or more drinks on one occasion?: Never Total Score: 1 Score Reviewed/Action Taken: No CHAITANYA-7 AMB Questionnaire CHAITANYA-7 Date CHAITANYA - 7 assessed: 04/24/24 Source: Developed by Drs. Pablo Harper, Tomasa William, Eliazar Sher and colleagues, with an educational carlos from [employer]. Review of Systems Const All systems reviewed & are unremarkable except as noted in HPI and below Card Denies chest pain at rest, Denies chest pain with activity, Denies edema, Denies irregular heart rhythm, Denies claudication, Denies dyspnea, Denies dyspnea on exertion, Denies orthopnea, Denies paroxysmal nocturnal dyspnea and Denies slow heart rate Resp Denies cough, Denies dyspnea and Denies dyspnea on exertion GI Denies abdominal pain, Denies change in bowel habits, Denies excessive flatus, Denies nausea and Denies vomiting Physical exam (Primary Care) Vital Signs: Last Vital Signs Pulse 99 01/04/25 16:20 BP 120/80 01/04/25 16:20 Pulse Ox 96 01/04/25 16:20 Oxygen Delivery Method Room Air 01/04/25 16:20 BMI result Body Mass Index 30.4 Tobacco/Smoking Status: Tobacco use Status Tobacco use date assessed 01/04/25 01/04/25 16:21 Patient Tobacco Use Status Never used Tobacco 01/04/25 16:21 e-Cigarette/Vaping Use Never Used 01/04/25 16:21 Thrive Assessment: Date of Thrive Assessment Date Thrive assessed 08/17/24 01/04/25 16:21 Currently or been in a relationship where the following occur: No concerns reported Resp Effort & Inspection: normal respiratory effort Auscultation: clear to auscultation bilaterally Cardio Jugular venous distension: no JVD Rate: regular rate Rhythm: regular rhythm Heart sounds: S1 normal heart sound present and S2 normal heart sound present Extrem General: Yes full ROM Results AMB Hemoglobin A1c AMB Hemoglobin A1c 6.2 % Last Edit by ZACKERY Gramajo on 01/04/25 16:37 Coding Assessment & Plan Assessment & Plan Orders: Orders Lipid Panel 4 Months E78.5 - Hyperlipidemia, unspecified Comprehensive [place]. Panel Fast 4 Months E11.9 - Type 2 diabetes mellitus without complications AMB Hemoglobin A1c Today Z13.9 - Encounter for screening, unspecified Microalbumin, Random (w Creat) 4 Months R80.9 - Proteinuria, unspecified Medications: New blood sugar diagnostic (OneTouch Verio test strips) Use 1 test strip once a day 100 ea 1RF E11.9 - Type 2 diabetes mellitus without complications semaglutide (Rybelsus) 14 mg PO DAILY 30 tabs 1RF 30 days blood-glucose meter ([employer] Verio Reflect Meter) As directed 1 ea 0RF E11.9 - Type 2 diabetes mellitus without complications lancets ([employer]ers[employer] Delica Plus Lancet) Use 1 lancet once a day 100 ea 1RF E11.9 - Type 2 diabetes mellitus without complications Discontinued semaglutide (Rybelsus) Discontinued Reason: Patient Completed Course 3 mg PO DAILY 30 days 30 tabs 0RF tirzepatide (Mounjaro) for 4 weeks Discontinued Reason: Order 2.5 mg (0.5 mL) subcut QWEEK 4 weeks 2 mL 0RF glipizide Discontinued Reason: Patient Completed Course 10 mg PO DAILY 90 days 90 tabs 1RF sitagliptin phosphate (Januvia) Discontinued Reason: Patient Completed Course 25 mg PO DAILY 90 days 90 tabs 1RF
[2025-01-04 16:20] VITALS: BP 120/80; PULSE 99; O2SAT 96; BMI 30.4
== END 2025-01-04 17:00 | disposition home or self-care (01) ==
LOC: HO.HMCH 16:18
PROVIDERS: PCP Internal Medicine; Visit Provider Internal Medicine
DX: Z13.9 Encounter for screening, unspecified (principal)

== ENCOUNTER → 2025-01-04 16:17 | Outpatient (BNVA) | payer OTHER, SELFPAY | PROVIDERS: PCP Internal Medicine; Visit Provider Internal Medicine | DX: E11.9 Type 2 diabetes mellitus without complications (principal); E78.5 Hyperlipidemia, unspecified; K59.04 Chronic idiopathic constipation; R80.9 Proteinuria, unspecified | CPT/HCPCS: 83036; 99212 ==